=== PATIENT | female | born 1995 | race Caucasian/White ===

== ENCOUNTER → 2016-06-19 | Outpatient (CLI) | payer BC, OTHER ==
[2016-06-19 16:08] LABS: CH 30.1; CHCM 34.4; HCT 39.3 % (34.0-46.0); HGB 13.1 gm/dL (11.4-16.0); MCH 29.4 pg (25.0-35.0); MCHC 33.4 g/dL (31.0-37.0); MCV 88.1 fL (80.0-100.0); Mean Platelet Volume 8.1; RBC 4.46 m/uL (3.80-5.40)
[2016-06-19 16:15] LABS: Glucose 77 mg/dL (74-99); Non-African American GFR(MDRD) >60 (>60 ml/min/1.73 sqM)
[2016-06-19 16:47] LABS: Hepatitis B Surface Ag Index 0.06
== END | disposition home or self-care (01) ==
LOC: LABWHC1 15:43
PROVIDERS: ATTEND Obstetrics & Gynecology
DX: Z34.80 Encounter for supervision of other normal pregnancy, unspecified trimester (principal); Z3A.00 Weeks of gestation of pregnancy not specified
CPT/HCPCS: 36415; 82565; 82947; 85027; 86762; 86780; 86850; 86900; 86901; 87340

== ENCOUNTER → 2016-07-02 | Outpatient (CLI) | payer BC, OTHER ==
--- NOTE | 2016-07-02 17:06 | US ---
EXAMINATION TYPE: US OB <= 14 wk fetus DATE OF EXAM: 07/02/2016 4:45 PM COMPARISON: NONE CLINICAL HISTORY: Z36 Confirm dates. EXAM PERFORMED: Transabdominal (TA) EXAM MEASUREMENTS: GESTATIONAL AGE / DATING Physician Established: not established Dates by LMP: unknown Dates by First Scan: no prior Dates by Current Scan for: (9 weeks/5 days) EDC: 01/30/17 MATERNAL ANATOMY Uterus: 13.4 x 5.5 x 9.4cm Right Ovary: unable to visualize Left Ovary: 3.0 x 1.8 x 2.8cm Post CDS / Adnexa: appears wnl Presence of free fluid: no Presence of subchorionic bleed: no GESTATION / SURVEY CRL: 2.9cm (9 weeks/5 days) Yolk Sac (normal less than 6mm): 0.5cm Heart Rate: 165 bpm Rhythm: Normal IUP: Viable IUP Date of LMP: 02/21 Beta HcG (if available): unavailable TECHNOLOGIST IMPRESSION: Single viable IUP 9wks/5days with JUANY of 01/30/17 IMPRESSION: Viable intrauterine gestation with a gestational age of 9 weeks 5 days +/- 5 days. Estimated date of confinement based on this examination is 01/30/2017.
== END | disposition home or self-care (01) ==
LOC: RADUSWWP 16:24
PROVIDERS: ATTEND Obstetrics & Gynecology
DX: Z36 Encounter for antenatal screening of mother (principal); Z3A.09 9 weeks gestation of pregnancy
CPT/HCPCS: 76801

== ENCOUNTER → 2016-09-04 | Outpatient (CLI) | payer BC, OTHER ==
--- NOTE | 2016-09-04 21:34 | US ---
EXAMINATION TYPE: US OB anatomy transabd DATE OF EXAM: 09/04/2016 5:01 PM COMPARISON: NONE HISTORY: 2nd Trimester 036.62XO Large for Dates TECHNIQUE: EXAM MEASUREMENTS: GESTATIONAL AGE / DATING Physician Established: (18 weeks/6 days) EDC: 01/30/17 Dates by LMP: unknown Dates by First Scan: (18 weeks/6 days) EDC: 01/30/17 Dates by Current Scan for: (19 weeks/0 days) EDC: 01/29/17 SURVEY IUP: Single PLACENTA: Posterior PREVIA: Low Lying VISHNU: 13.5 cm normal CERVICAL LENGTH (transabdominal: norm > 3.0cm): 3.5 cm BIOMETRY PRESENTATION: Variable LIE: Transverse lie with head maternal LT BPD: 4.3 cm 19 weeks / 1 days HC: 16.3 cm 19 weeks / 1 days AC: 13.9 cm 19 weeks / 2 days FL: 3.0 cm 19 weeks / 1 days ESTIMATED WEIGHT IN GRAMS: 278 grams ESTIMATED WEIGHT IN LBS/OZS: 0 lbs. 10 oz. WEIGHT PERCENTAGE BASED ON ESTABLISHED DATE: 66.1 % HC/AC: 1.17 normal FL/AC: 21.15 normal HEART RATE: 145 bpm RHYTHM: Normal ANATOMY SEEN (within normal limits): * Lateral Vent (< 1 cm) 0.6 cm * Cisterna Magna (< 1.1 cm) 0.5 cm * Nuchal Fold (< 0.6 cm) 0.4 cm * Cerebellum (varies with age) 1.7 cm Choroid Plexus (bilateral) Midline Falx Cavus Septi Pellucidi Four Chamber Heart Outflow tracts: LVOT/RVOT Stomach Situs Nose / Lips Diaphragm Kidneys (bilateral) Bladder Cord Insert Three Vessel Cord Longitudinal Spine Transverse Spine Arms (bilateral) Legs (bilateral) IMPRESSION: Single viable IUP 19wks/0days with JUANY of 01/29/17. Placenta appears low-lying. Follow-up as clinica lly warranted.
== END ==
LOC: RADUSWWP 16:21
PROVIDERS: ATTEND Obstetrics & Gynecology
DX: O36.62X0 Maternal care for excessive fetal growth, second trimester, not applicable or unspecified (principal); Z3A.19 19 weeks gestation of pregnancy
CPT/HCPCS: 76811

== ENCOUNTER → 2016-10-31 | Outpatient (CLI) | payer BC, OTHER ==
[2016-10-31 11:56] LABS: CH 29.9; CHCM 33.1; HCT 37.2 % (34.0-46.0); HDW 2.98; HGB 12.2 gm/dL (11.4-16.0); MCH 29.8 pg (25.0-35.0); MCHC 32.8 g/dL (31.0-37.0); MCV 90.8 fL (80.0-100.0); Mean Platelet Volume 8.1; RBC 4.09 m/uL (3.80-5.40); RDW 13.8 % (11.5-15.5); WBC 12.1 k/uL (4.0-11.0)
== END | disposition home or self-care (01) ==
LOC: LABWHC1 10:29
PROVIDERS: ATTEND Obstetrics & Gynecology
DX: Z34.82 Encounter for supervision of other normal pregnancy, second trimester (principal); Z3A.00 Weeks of gestation of pregnancy not specified
CPT/HCPCS: 36415; 82950; 85027

== ENCOUNTER → 2016-11-07 | Outpatient (CLI) | payer BC, OTHER ==
--- NOTE | 2016-11-08 08:17 | US ---
EXAMINATION TYPE: US OB anatomy transabd DATE OF EXAM: 11/07/2016 COMPARISON: US HISTORY: Large for dates O36.63X0 TECHNIQUE: Transabdominal (TA) EXAM MEASUREMENTS: GESTATIONAL AGE / DATING Physician Established: (28 weeks/0 days) EDC: 01/30/17 Dates by LMP: (28 weeks/0 days) EDC: 01/30/17 Dates by First Scan: (28 weeks/0 days) EDC: 01/30/17 Dates by Current Scan for: (28 weeks/4 days) EDC: 01/26/17 SURVEY IUP: Single PLACENTA: Posterior PREVIA: No previa VISHNU: 17.7 cm CERVICAL LENGTH (transabdominal: norm > 3.0cm): 3.9 cm BIOMETRY PRESENTATION: Vertex LIE: Longitudinal BPD: 7.2 cm 29 weeks / 0 days HC: 26.6 cm 29 weeks / 0 days AC: 23.8 cm 28 weeks / 1 days FL: 5.2 cm 27 weeks / 6 days ESTIMATED WEIGHT IN GRAMS: 1184 grams ESTIMATED WEIGHT IN LBS/OZS: 2 lbs. 10 oz. WEIGHT PERCENTAGE BASED ON ESTABLISHED DATE: 43 % HC/AC: 26.6 FL/AC: 5.2 HEART RATE: 143 bpm RHYTHM: Normal ANATOMY SEEN (within normal limits): Midline Falx Cavus Septi Pellucidi Stomach Situs Nose / Lips Diaphragm Kidneys (bilateral) Longitudinal Spine Transverse Spine Arms (bilateral) Legs (bilateral) ANATOMY NOT SEEN: due to shadowing/advanced age * Lateral Vent (< 1 cm) cm * Cisterna Magna (< 1.1 cm) cm * Nuchal Fold (< 0.6 cm) cm * Cerebellum (varies with age) cm Choroid Plexus (bilateral) Four Chamber Heart Outflow tracts: LVOT/RVOT Bladder Cord Insert Three Vessel Cord IMPRESSION: 1. Single viable intrauterine with an estimated gestational age of 28 weeks 4 days and rossi mated date of confinement of 01/26/2017. Estimated weight is a 43%. 2. Limited anatomy as noted above given the advanced age and shadowing.
== END | disposition home or self-care (01) ==
LOC: RADUSWWP 16:21
PROVIDERS: ATTEND Obstetrics & Gynecology
DX: O36.63X0 Maternal care for excessive fetal growth, third trimester, not applicable or unspecified (principal); Z3A.28 28 weeks gestation of pregnancy
CPT/HCPCS: 76811

== ENCOUNTER 2017-01-27 06:00 | Inpatient (IN) | payer BC, OTHER ==
--- NOTE | 2017-01-27 05:47 | P.HPOB ---
History of Present Illness H&P Date: 01/27/17 Chief Complaint: Patient is requesting elective induction of labor. This patient is a pleasant 22-year-old 2 para 1 female estimated date of confinement 01/30/2017 estimated gestational age 39-4/7 weeks who presents to labor and delivery requesting induction of labor. Patient's care has been uncomplicated with the exception of late to seek care. Review of Systems Constitutional: Denies chills, Denies fever Cardiovascular: Denies chest pain, Denies shortness of breath Respiratory: Denies cough Gastrointestinal: Reports heartburn Genitourinary: Reports Menstruation: Reports amenorrhea Musculoskeletal: Denies myalgias Integumentary: Denies pruritus, Denies rash Past Medical History Past Medical History: No Reported History Additional Past Medical History / Comment(s): appendex out year ago History of Any Multi-Drug Resistant Organisms: None Reported Past Surgical History: Appendectomy Past Anesthesia/Blood Transfusion Reactions: No Reported Reaction Past Psychological History: No Psychological Hx Reported Smoking Status: Never smoker Past Alcohol Use History: None Reported Past Drug Use History: None Reported - Past Family History Mother Family Medical History: No Reported History Medications and Allergies Home Medications Medication Instructions Recorded Confirmed Type Pnv,Calcium 72/Iron/Folic Acid 1 tab PO DAILY 05/22/15 05/24/15 History [Pnv Plus Multivit Tab] Pnv,Calcium 72/Iron/Folic Acid 1 cap PO DAILY 05/24/15 05/24/15 History [Pnv Plus Multivit Tab] Allergies Allergy/AdvReac Type Severity Reaction Status Date / Time No Known Allergies Allergy Verified 05/24/15 08:46 Exam - OBG Physical Exam Abdomen: bowel sounds normal, no diffuse tenderness, no bruit present, no guarding noted, no hepatomegaly, no splenomegaly, no mass Vulva: both: normal Vagina: normal moisture, no discharge Cervix: no lesion (Cervix in the office was 2 cm and thick.), no discharge Uterus: enlarged (Fundal height was 38 cm.) Results blood work shows she is O positive, rubella immune, RPR nonreactive, hepatitis B negative, Glucola was normal, group B strep was positive, ultrasounds have been normal. Assessment and Plan (1) Third trimester Narrative/Plan: This is a pleasant 22-year-old 2 para 1 female 39-4/7 weeks gestation who presents to labor and delivery for requested induction of labor. Patient has a positive group B strep culture. Plan is antibiotic prophylaxis , induction of labor, and anticipate vaginal delivery. Status: Acute (2) Elective induction of labor planned Status: Acute (3) Group B streptococcal carriage complicating Status: Acute
[2017-01-27] MEDS ORDERED: LIDOCAINE 1% (PF) 10 MG/ML (30 ML SDV) SQ PRN (06:33)
[2017-01-27] MEDS ORDERED: TERBUTALINE 1 MG/ML VIAL SQ PRN (06:33)
[2017-01-27] MEDS ORDERED: METHYLERGONOVINE 0.2 MG/ML 1 ML AMP IM PRN (06:33)
[2017-01-27] MEDS ORDERED: AMPICILLIN 2,000 MG in SODIUM CHLORIDE 0.9% 100 ML IVPB STA (06:33)
[2017-01-27] MEDS ORDERED: OXYTOCIN 10 UNIT/ML 1 ML VIAL IM PRN (06:33)
[2017-01-27] MEDS ORDERED: CARBOPROST TROMETHAMINE 250 MCG/ML 1 ML AMP IM PRN (06:33)
[2017-01-27] MEDS: AMPICILLIN 1,000 MG in SODIUM CHLORIDE 0.9% 50 ML IVPB SCH ×4 (06:55→19:00)
[2017-01-27] MEDS: LACTATED RINGERS 1,000 ML IV SCH ×3 (06:55→13:02)
[2017-01-27] MEDS: OXYTOCIN 20 UNITS/1000 ML NS 1,000 ML IV SCH ×2 (07:08→20:39)
[2017-01-27 07:18] LABS: Basophils # (A) 0.1 k/uL (0-0.2); Basophils % (A) 0 %; CH 31.4; CHCM 35.1; Eosinophils # (A) 0.1 k/uL (0-0.7); Eosinophils % (A) 0 %; HCT 37.6 % (34.0-46.0); HDW 2.96; HGB 12.8 gm/dL (11.4-16.0); Luc # (Auto) 0.24; Luc % (Auto) 2; Lymphocytes # (A) 2.4 k/uL (1.0-4.8); Lymphocytes % (A) 19 %; MCH 30.5 pg (25.0-35.0); MCV 89.9 fL (80.0-100.0); Mean Platelet Volume 10.7; Monocytes # (A) 0.5 k/uL (0-1.0); Monocytes % (A) 4 %; Neutrophils # (A) 9.2 k/uL (1.3-7.7); Neutrophils % (A) 74 %; RBC 4.18 m/uL (3.80-5.40); RDW 15.8 % (11.5-15.5); WBC 12.4 k/uL (3.8-10.6); WBC (Perox) 12.58
[2017-01-27 07:21] VITALS: BMI 32.3
[2017-01-27] MEDS ORDERED: SODIUM CHLORIDE 0.9% 100 ML BAG ONE (11:11)
[2017-01-27] MEDS ORDERED: BUPIVACAINE (PF) 0.25% 30 ML VIAL ONE (11:11)
[2017-01-27] MEDS ORDERED: fentaNYL (PF) 50 MCG/ML 5 ML AMP ONE (11:11)
[2017-01-27] MEDS ORDERED: HYDROCORTISONE 2.5% RECTAL CREAM 30 GM TUBE RECTAL PRN (19:26)
[2017-01-27] MEDS ORDERED: SIMETHICONE 80 MG CHEWABLE PO PRN (19:26)
[2017-01-27] MEDS ORDERED: ZOLPIDEM 5 MG TAB PO PRN (19:26)
[2017-01-27] MEDS ORDERED: WITCH HAZEL 1 EACH MED..PAD TOPICAL PRN (19:26)
[2017-01-27] MEDS ORDERED: ACETAMINOPHEN TAB 325 MG TAB PO PRN (19:26)
[2017-01-27] MEDS ORDERED: diphenhydrAMINE 50 MG/ML 1 ML VIAL IVP PRN (19:26)
[2017-01-27] MEDS ORDERED: BISACODYL 10 MG SUPP RECTAL PRN (19:26)
[2017-01-27] MEDS ORDERED: Acetaminophen-Codeine 300-30mg TAB PO PRN (19:26)
[2017-01-27] MEDS ORDERED: LANOLIN CREAM 5 GM TUBE TOPICAL PRN (19:26)
[2017-01-27] MEDS ORDERED: diphenhydrAMINE 25 MG CAP PO PRN (19:26)
[2017-01-27] MEDS ORDERED: BENZOCAINE/MENTHOL SPRAY 1 GM/SPRAY AEROSOL TOPICAL PRN (19:26)
[2017-01-27] MEDS: IBUPROFEN 600 MG TAB PO PRN (19:48)
--- NOTE | 2017-01-27 19:49 | P.PROBDLV ---
Vaginal Delivery Note - . Vaginal Delivery Note: Normal vaginal delivery viable female Apgars 9 and 9 delivery time is 1905 hrs. Please see dictated H&P for intimate details of this patient's admission. Brief summary this is a 22-year-old 2 para 1 female 39-4/7 weeks gestation admitted to labor and delivery for requested induction of labor. On admission patient is 2 cm dilated has artificial rupture membranes for clear fluid. Labor is induced with Pitocin per protocol. Labor progresses and she does get an epidural for pain control. She does stay at 5 cm for bit of time but then progresses quickly to complete. Patient's pushes in the posterior perineum is supported. We have controlled delivery of 's head over the intact perineum. Mouth and nares are bulb suctioned. There is no evidence of a nuchal cord. With gentle downward traction we then have delivery the anterior and posterior shoulder and rest this infant's body. This is a vigorous viable female infant Apgars 9 and 9 delivery time is 1905 hrs. After delivery of the the umbilical cord is doubly clamped and cut appears to be trivascular. Placenta spontaneously delivered intact. Estimated blood loss is 150 mL. Inspection of perineum shows a right labial laceration extends somewhat into the vagina which is easily repaired with 3-0 Vicryl. Excellent reapproximation is noted.'s also left labial laceration that does not require repair. and mother are stable delivery room. All counts are correct 3. There are no complications.
[2017-01-27] MEDS: SENNOSIDES-DOCUSATE SODIUM 1 EACH TAB PO SCH ×2 (20:52→22:33)
[2017-01-27] MEDS: Acetaminophen-Codeine 300-30mg TAB PO PRN (20:52)
[2017-01-27] MEDS ORDERED: BUTORPHANOL 1 MG/ML 1 ML VIAL IV PRN (22:30)
[2017-01-27] MEDS ORDERED: LIDOCAINE 1% INJ 10MG/ML (20 ML MDV) SQ ONE (22:30)
--- NOTE | 2017-01-27 22:37 | P.PN ---
Progress Note - Text I Was called to see the patient regarding some increase in vaginal bleeding and hematoma of the right labia. Upon examination her uterus was firm. Her right labia is swollen and there is a hematoma beneath the suture line extending into the vagina. When hematoma as pushed some blood spurts up through a hole at the introitus. The patient was counseled that she probably needs a few more stitches and further examination. She has been eating side will not be taking her to the operating room. She is given some IV pain medication and the area is infiltrated with 1% lidocaine. I used a 3-0 Vicryl in [id number] stitches to approximate the suture line at the introitus and further into the vagina. Hemostasis was assured. Patient tolerated this well.
[2017-01-28] MEDS: IBUPROFEN 600 MG TAB PO PRN ×2 (02:46→10:35)
--- NOTE | 2017-01-28 06:30 | P.PNOBGVD ---
Subjective - Subjective Patient reports: Reports appetite normal, Reports voiding normally, Reports pain well controlled, Reports ambulating normally : doing well Objective - Latest Vital Signs Latest vital signs: Vital Signs Temp Pulse Resp BP Pulse Ox 01/28/17 04:00 98.3 F 85 16 93/49 01/28/17 00:00 98.4 F 91 16 102/58 01/27/17 22:24 96.6 F L 116 H 16 117/57 01/27/17 21:18 93 16 131/87 01/27/17 20:48 95 16 132/83 01/27/17 20:18 93 16 131/87 01/27/17 20:03 87 16 131/87 01/27/17 19:48 93 16 127/87 01/27/17 19:33 107 H 16 125/85 01/27/17 19:18 120 H 18 137/91 01/27/17 06:32 97.3 F L 103 H 16 150/93 97 Intake and Output 01/27/17 01/27/17 01/28/17 14:59 22:59 06:59 Intake Total 1999 1664.617 300 Output Total 450 Balance 1999 1214.617 300 Intake: Intake, IV Titration 1999 1664.617 Amount Lactated Ringers 1,000 ml 2000 1000 @ 125 mls/hr IV .Q8H DOREEN Rx#:[id number] Oxytocin 20 Units/1000 ml 664.617 Ns 1,000 ml @ 1 MILLIUNIT/MIN 3 mls/hr IV .Q24H DOREEN Rx#:[id number] Oral 300 Output: Urine 300 Estimated Blood Loss 150 Other: # Voids 1 1 - Exam Lungs: bilateral: normal Chest: Normal S1, Normal S2 Extremities: Present: normal Abdomen: Present: normal appearance, soft Uterus: Present: normal, firm - Labs Labs: Abnormal Lab Results - Last 24 Hours (Table) 01/27/17 Range/Units 06:44 WBC 12.4 H (3.8-10.6) k/uL RDW 15.8 H (11.5-15.5) % Neutrophils # 9.2 H (1.3-7.7) k/uL Assessment and Plan (1) Third trimester Narrative/Plan: Patient is resting without new complaints. Patient had an episode of increased pain and was found to have a hematoma had her suture site. Dr. Fajardo express this and placed additional sutures and the hematoma did not reform. CBC is pending at this time. Patient appears to be comfortable. Vital signs are stable and she is afebrile. Uterus is firm nontender. Inspection of her vulva does not show any expanding hematoma. Plan today is to continue routine care, allow the patient to shower, check a CBC. Current Visit: Yes Status: Acute Code(s): Z34.93 - ENCNTR FOR SUPRVSN OF NORMAL PREG, UNSP, THIRD TRIMESTER SNOMED Code(s): 40073436 (2) Elective induction of labor planned Current Visit: Yes Status: Acute Code(s): AUR9908 - SNOMED Code(s): 498502020 (3) Group B streptococcal carriage complicating Current Visit: Yes Status: Acute Code(s): O99.820 - STREPTOCOCCUS B CARRIER STATE COMPLICATING SNOMED Code(s): 346914722254976
[2017-01-28] MEDS: Acetaminophen-Codeine 300-30mg TAB PO PRN ×3 (07:52→21:21)
[2017-01-28] MEDS: SENNOSIDES-DOCUSATE SODIUM 1 EACH TAB PO SCH ×2 (07:52→22:15)
[2017-01-28 08:55] LABS: Basophils # (A) 0.1 k/uL (0-0.2); Basophils % (A) 0 %; CH 30.1; CHCM 33.7; Eosinophils # (A) 0.1 k/uL (0-0.7); Eosinophils % (A) 0 %; HCT 27.9 % (34.0-46.0); HDW 3.01; Luc # (Auto) 0.24; Luc % (Auto) 2; Lymphocytes % (A) 12 %; MCH 30.4 pg (25.0-35.0); MCHC 33.8 g/dL (31.0-37.0); MCV 89.9 fL (80.0-100.0); Mean Platelet Volume 10.2; Monocytes # (A) 0.8 k/uL (0-1.0); Monocytes % (A) 5 %; Neutrophils # (A) 13.4 k/uL (1.3-7.7); Neutrophils % (A) 81 %; RDW 15.2 % (11.5-15.5); WBC 16.5 k/uL (3.8-10.6); WBC (Perox) 17.93
[2017-01-28 09:03] LABS: HGB 9.4 gm/dL (11.4-16.0)
[2017-01-29] MEDS: Acetaminophen-Codeine 300-30mg TAB PO PRN (03:22)
--- NOTE | 2017-01-29 06:12 | P.PNOBGVD ---
Subjective - Subjective Patient reports: Reports appetite normal, Reports voiding normally, Reports pain well controlled, Reports ambulating normally : doing well Objective - Latest Vital Signs Latest vital signs: Vital Signs Temp Pulse Resp BP Pulse Ox 01/29/17 00:00 98.2 F 105 H 16 96/52 01/28/17 15:46 98.6 F 90 16 120/75 99 01/28/17 07:59 98.2 F 91 14 120/72 98 Intake and Output 01/28/17 01/28/17 01/29/17 14:59 22:59 06:59 Other: # Voids 1 2 1 - Exam Lungs: bilateral: normal Chest: Normal S1, Normal S2 Extremities: Present: normal Abdomen: Present: normal appearance, soft Uterus: Present: normal, firm - Labs Labs: Abnormal Lab Results - Last 24 Hours (Table) 01/28/17 Range/Units 07:36 WBC 16.5 H (3.8-10.6) k/uL RBC 3.10 L (3.80-5.40) m/uL Hgb 9.4 L D (11.4-16.0) gm/dL Hct 27.9 L (34.0-46.0) % Neutrophils # 13.4 H (1.3-7.7) k/uL Assessment and Plan (1) Third trimester Narrative/Plan: day #2. Patient is resting without complaints and wishes to go home. Vital signs are stable and she is afebrile. Uterus is firm nontender and her vulva appears the same. CBC yesterday showed her hemoglobin to be 9.4 which was expected. Patient's had normal bleeding. My impression is a normal course. She did have a vaginal hematoma which remains the same and is resolving. Plan is to continue routine care and discharge home later today. Current Visit: Yes Status: Acute Code(s): Z34.93 - ENCNTR FOR SUPRVSN OF NORMAL PREG, UNSP, THIRD TRIMESTER SNOMED Code(s): 20964141 (2) Elective induction of labor planned Current Visit: Yes Status: Acute Code(s): FIB1918 - SNOMED Code(s): 460829443 (3) Group B streptococcal carriage complicating Current Visit: Yes Status: Acute Code(s): O99.820 - STREPTOCOCCUS B CARRIER STATE COMPLICATING SNOMED Code(s): 781846129317326
--- NOTE | 2017-01-29 06:15 | P.DS ---
Providers Date of admission: 01/27/17 06:16 Expected date of discharge: 01/29/17 Attending physician: Davonte Fletcher Primary care physician: Stated None - Discharge Diagnosis(es) (1) Third trimester Please see dictated H&P for intimate details of this patient's admission. Brief summary this is a pleasant 22-year-old 2 para 1 female 39-4/7 weeks gestation admitted to labor and delivery for elective induction of labor. Patient was on have a vaginal delivery viable female . Please see dictated delivery note. Patient did develop a vaginal hematoma which required additional sutures and has some blood loss from this. This however did stop and continue to resolve throughout her admission. day #2 she is felt be stable for discharge home follow up with me in 6 weeks. Current Visit: Yes Status: Acute (2) Elective induction of labor planned Current Visit: Yes Status: Acute (3) Group B streptococcal carriage complicating Current Visit: Yes Status: Acute Plan - Discharge Summary New Discharge Prescriptions: New Acetaminophen-Codeine 300-30mg [Tylenol w/codeine #3] 1 - 2 each PO Q4HR PRN #30 tab PRN Reason: Mild Pain exceeding Tylenol Ibuprofen [Motrin] 600 mg PO Q6HR PRN #40 tab PRN Reason: Mild Pain Or Fever >= 100.5 Discharge Medication List Acetaminophen-Codeine 300-30mg [Tylenol w/codeine #3] 1 - 2 each PO Q4HR PRN # 30 tab 01/29/17 [Rx] Ibuprofen [Motrin] 600 mg PO Q6HR PRN #40 tab 01/29/17 [Rx] Follow up Appointment(s)/Referral(s): Davonte Fletcher MD [STAFF PHYSICIAN] - 03/09/17 8:45 am Patient Instructions/Handouts: Vaginal Delivery (DC) Activity/Diet/Wound Care/Special Instructions: No intercourse or anything per vagina for 6 weeks. Please call if any fever, chills, excessive vaginal bleeding, and/or abdominal pain. Discharge Disposition: HOME SELF-CARE
[2017-01-29 08:22] VITALS: BP 122/79; PULSE 101; RESP 14; TEMP 98.4
[2017-01-29] MEDS: SENNOSIDES-DOCUSATE SODIUM 1 EACH TAB PO SCH (11:13)
== END 2017-01-29 11:14 | disposition home or self-care (01) | DRG 775 ==
LOC: 4FBP 06:16
PROVIDERS: ADMIT Obstetrics & Gynecology; ATTEND Obstetrics & Gynecology
PROC: 10E0XZZ Delivery of Products of Conception, External Approach (ICD-10-PCS; principal; 2017-01-27)
PROC: 0UQGXZZ Repair Vagina, External Approach (ICD-10-PCS; 2017-01-27)
PROC: 10907ZC Drainage of Amniotic Fluid, Therapeutic from Products of Conception, Via Natural or Artificial Opening (ICD-10-PCS; 2017-01-27)
PROC: 3E033VJ Introduction of Other Hormone into Peripheral Vein, Percutaneous Approach (ICD-10-PCS; 2017-01-27)
PROC: 0HQ9XZZ Repair Perineum Skin, External Approach (ICD-10-PCS; 2017-01-27)
PROC: 3E0S3NZ Introduction of Analgesics, Hypnotics, Sedatives into Epidural Space, Percutaneous Approach (ICD-10-PCS; 2017-01-27)
DX: O70.0 First degree perineal laceration during delivery (principal); O71.7 Obstetric hematoma of pelvis; O99.824 Streptococcus B carrier state complicating childbirth; Z3A.39 39 weeks gestation of pregnancy; Z37.0 Single live birth; Z90.49 Acquired absence of other specified parts of digestive tract
CPT/HCPCS: 85025; 88307

== ENCOUNTER 2017-02-01 15:31 | Observation (INO) | payer BC, OTHER ==
[2017-02-01] MEDS ORDERED: SODIUM CHLORIDE 0.9% 1,000 ML IV STA (16:25)
[2017-02-01 16:48] LABS: Basophils % (A) 0 %; CH 29.9; CHCM 34.5; Eosinophils # (A) 0.1 k/uL (0-0.7); Eosinophils % (A) 1 %; HCT 28.2 % (34.0-46.0); HDW 3.36; HGB 9.6 gm/dL (11.4-16.0); Luc # (Auto) 0.17; Luc % (Auto) 1; Lymphocytes # (A) 1.5 k/uL (1.0-4.8); Lymphocytes % (A) 12 %; MCH 29.8 pg (25.0-35.0); MCHC 34.2 g/dL (31.0-37.0); MCV 87.3 fL (80.0-100.0); Mean Platelet Volume 8.7; Monocytes # (A) 0.5 k/uL (0-1.0); Monocytes % (A) 4 %; Neutrophils # (A) 10.4 k/uL (1.3-7.7); Neutrophils % (A) 81 %; RBC 3.23 m/uL (3.80-5.40); RDW 14.2 % (11.5-15.5); WBC 12.8 k/uL (3.8-10.6); WBC (Perox) 13.32
[2017-02-01 16:52] LABS: Appearance,Urine Cloudy (Clear); Bacteria,Urine Rare /hpf; Bilirubin,Urine Negative (Negative); Glucose,Urine (UA) Negative (Negative); Ketones,Urine 3+ (Negative); Leukocyte Esterase,Urine Large (Negative); Mucus,Urine Occasional /hpf; Nitrite,Urine Negative (Negative); PH, Urine 5.5 (5.0-8.0); Particle Count 12952; Protein,Urine 1+ (Negative); RBC,Urine >182 /hpf (0-5); Specific Gravity,Urine 1.015 (1.001-1.035); Squamous Epithelial Cell,Urine 2 /hpf (0-4); UA Billing (MACRO vs. MICRO) MICRO; Urobilinogen,Urine <2.0 mg/dL (<2.0); WBC,Urine >182 /hpf (0-5)
--- NOTE | 2017-02-01 16:54 | ED ---
General Adult HPI - General Chief complaint: Vaginal Bleeding Stated complaint: Female Time Seen by Provider: 02/01/17 15:46 Source: patient, RN notes reviewed, old records reviewed Mode of arrival: ambulatory Limitations: no limitations - History of Present Illness Initial comments: This is a 22-year-old female to the ER for evaluation. Postop issues. Patient recently had a vaginal delivery, she did have natural episiotomy which was repaired after . Patient has a continued breathing, and has noticed that her stitches have not held. Worse and when she tries to urinate. Denies complaints of any other symptoms, no abdominal pain. - Related Data Home Medications Medication Instructions Recorded Confirmed Acetaminophen-Codeine 300-30mg 1 tab PO Q8H PRN 02/01/17 02/01/17 [Tylenol #3] Ibuprofen [Motrin] 600 mg PO Q8HR PRN 02/01/17 02/01/17 Previous Rx's Medication Instructions Recorded Sulfamethox-Tmp 800-160Mg [Bactrim 1 tab PO Q12HR #10 tab 02/01/17 DS 800-160 mg] Allergies Allergy/AdvReac Type Severity Reaction Status Date / Time No Known Allergies Allergy Verified 02/01/17 15:59 Review of Systems ROS Statement: Those systems with pertinent positive or pertinent negative responses have been documented in the HPI. ROS Other: All systems not noted in ROS Statement are negative. Past Medical History Past Medical History: No Reported History Additional Past Medical History / Comment(s): appendex out year ago History of Any Multi-Drug Resistant Organisms: None Reported Past Surgical History: Appendectomy Past Anesthesia/Blood Transfusion Reactions: No Reported Reaction Past Psychological History: No Psychological Hx Reported Smoking Status: Never smoker Past Alcohol Use History: None Reported Past Drug Use History: None Reported - Past Family History Mother Family Medical History: No Reported History General Exam Limitations: no limitations General appearance: alert, in no apparent distress Head exam: Present: atraumatic, normocephalic, normal inspection Eye exam: Present: normal appearance, PERRL, EOMI. Absent: scleral icterus, conjunctival injection, periorbital swelling ENT exam: Present: normal exam, mucous membranes moist Neck exam: Present: normal inspection. Absent: tenderness, meningismus, lymphadenopathy Respiratory exam: Present: normal lung sounds bilaterally. Absent: respiratory distress, wheezes, rales, rhonchi, stridor Cardiovascular Exam: Present: regular rate, normal rhythm, normal heart sounds. Absent: systolic murmur, diastolic murmur, rubs, gallop, clicks GI/Abdominal exam: Present: soft, normal bowel sounds. Absent: distended, tenderness, guarding, rebound, rigid Extremities exam: Present: normal inspection, full ROM, normal capillary refill. Absent: tenderness, pedal edema, joint swelling, calf tenderness Back exam: Present: normal inspection Neurological exam: Present: alert, oriented X3, CN II-XII intact Psychiatric exam: Present: normal affect, normal mood Skin exam: Present: warm, dry, intact, normal color. Absent: rash Course Vital Signs 02/01/17 02/01/17 15:42 17:29 Temperature 99.4 F Pulse Rate 120 H 117 H Respiratory 20 18 Rate Blood Pressure 177/111 132/94 O2 Sat by Pulse 96 100 Oximetry - Reevaluation(s) Reevaluation #1: 02/01/17 16:[address] Fajardo regarding Medical Decision Making - Medical Decision Making 22 female known patient of gynecology, will be admitted to the hospital for repair of the episiotomy - Lab Data Result diagrams: 02/01/17 16:35 02/01/17 16:35 Lab Results 02/01/17 02/01/17 02/01/17 Range/Units 16:35 16:35 16:35 WBC 12.8 H (3.8-10.6) k/uL RBC 3.23 L (3.80-5.40) m/uL Hgb 9.6 L (11.4-16.0) gm/dL Hct 28.2 L (34.0-46.0) % MCV 87.3 (80.0-100.0) fL MCH 29.8 (25.0-35.0) pg MCHC 34.2 (31.0-37.0) g/dL RDW 14.2 (11.5-15.5) % Plt Count 279 (150-450) k/uL Neutrophils % 81 % Lymphocytes % 12 % Monocytes % 4 % Eosinophils % 1 % Basophils % 0 % Neutrophils # 10.4 H (1.3-7.7) k/uL Lymphocytes # 1.5 (1.0-4.8) k/uL Monocytes # 0.5 (0-1.0) k/uL Eosinophils # 0.1 (0-0.7) k/uL Basophils # 0.0 (0-0.2) k/uL PT 9.5 (9.0-12.0) sec INR 0.9 (<1.2) APTT 23.6 (22.0-30.0) sec Sodium 138 (137-145) mmol/L Potassium 3.8 (3.5-5.1) mmol/L Chloride 104 (98-107) mmol/L Carbon Dioxide 23 (22-30) mmol/L Anion Gap 11 mmol/L BUN 9 (7-17) mg/dL Creatinine 0.50 L (0.52-1.04) mg/dL Est GFR (MDRD) Af Amer >60 (>60 ml/min/1.73 sqM) Est GFR (MDRD) Non-Af >60 (>60 ml/min/1.73 sqM) Glucose 76 (74-99) mg/dL Calcium 9.1 (8.4-10.2) mg/dL Magnesium 1.7 (1.6-2.3) mg/dL Total Bilirubin 0.6 (0.2-1.3) mg/dL AST 28 (14-36) U/L ALT 43 (9-52) U/L Alkaline Phosphatase 185 H (38-126) U/L Total Protein 6.1 L (6.3-8.2) g/dL Albumin 3.4 L (3.5-5.0) g/dL Urine Color Urine Appearance (Clear) Urine pH (5.0-8.0) Ur Specific [place] (1.001-1.035) Urine Protein (Negative) Urine Glucose (UA) (Negative) Urine Ketones (Negative) Urine Blood (Negative) Urine Nitrite (Negative) Urine Bilirubin (Negative) Urine Urobilinogen (<2.0) mg/dL Ur Leukocyte Esterase (Negative) Urine RBC (0-5) /hpf Urine WBC (0-5) /hpf Ur Squamous Epith Cells (0-4) /hpf Urine Bacteria (None) /hpf Urine Mucus (None) /hpf Blood Type Blood Type Recheck Antibody Screen Spec Expiration Date 02/01/17 02/01/17 Range/Units 16:35 16:35 WBC (3.8-10.6) k/uL RBC (3.80-5.40) m/uL Hgb (11.4-16.0) gm/dL Hct (34.0-46.0) % MCV (80.0-100.0) fL MCH (25.0-35.0) pg MCHC (31.0-37.0) g/dL RDW (11.5-15.5) % Plt Count (150-450) k/uL Neutrophils % % Lymphocytes % % Monocytes % % Eosinophils % % Basophils % % Neutrophils # (1.3-7.7) k/uL Lymphocytes # (1.0-4.8) k/uL Monocytes # (0-1.0) k/uL Eosinophils # (0-0.7) k/uL Basophils # (0-0.2) k/uL PT (9.0-12.0) sec INR (<1.2) APTT (22.0-30.0) sec Sodium (137-145) mmol/L Potassium (3.5-5.1) mmol/L Chloride (98-107) mmol/L Carbon Dioxide (22-30) mmol/L Anion Gap mmol/L BUN (7-17) mg/dL Creatinine (0.52-1.04) mg/dL Est GFR (MDRD) Af Amer (>60 ml/min/1.73 sqM) Est GFR (MDRD) Non-Af (>60 ml/min/1.73 sqM) Glucose (74-99) mg/dL Calcium (8.4-10.2) mg/dL Magnesium (1.6-2.3) mg/dL Total Bilirubin (0.2-1.3) mg/dL AST (14-36) U/L ALT (9-52) U/L Alkaline Phosphatase (38-126) U/L Total Protein (6.3-8.2) g/dL Albumin (3.5-5.0) g/dL Urine Color Light Red Urine Appearance Cloudy H (Clear) Urine pH 5.5 (5.0-8.0) Ur Specific [place] 1.015 (1.001-1.035) Urine Protein 1+ H (Negative) Urine Glucose (UA) Negative (Negative) Urine Ketones 3+ H (Negative) Urine Blood Large H (Negative) Urine Nitrite Negative (Negative) Urine Bilirubin Negative (Negative) Urine Urobilinogen <2.0 (<2.0) mg/dL Ur Leukocyte Esterase Large H (Negative) Urine RBC >182 H (0-5) /hpf Urine WBC >182 H (0-5) /hpf Ur Squamous Epith Cells 2 (0-4) /hpf Urine Bacteria Rare H (None) /hpf Urine Mucus Occasional H (None) /hpf Blood Type O Positive Blood Type Recheck No Antibody Screen NEGATIVE Spec Expiration Date 02/04/20176 Disposition Clinical Impression: Obstetric vaginal laceration Disposition: ADMITTED IP TO THIS HOSP Condition: Stable
[2017-02-01 16:59] LABS: INR 0.9 (<1.2); Partial Thromboplastin Time 23.6 sec (22.0-30.0); Prothrombin Time 9.5 sec (9.0-12.0)
[2017-02-01 17:02] LABS: ALT 43 U/L (9-52); AST 28 U/L (14-36); Alkaline Phosphatase 185 U/L (38-126); Anion Gap 11 mmol/L; Blood Urea Nitrogen 9 mg/dL (7-17); Calcium 9.1 mg/dL (8.4-10.2); Carbon Dioxide 23 mmol/L (22-30); Chloride 104 mmol/L (98-107); Glucose 76 mg/dL (74-99); Magnesium 1.7 mg/dL (1.6-2.3); Non-African American GFR(MDRD) >60 (>60 ml/min/1.73 sqM); Potassium 3.8 mmol/L (3.5-5.1); Sodium 138 mmol/L (137-145); Total Bilirubin 0.6 mg/dL (0.2-1.3); Total Protein 6.1 g/dL (6.3-8.2)
--- NOTE | 2017-02-01 17:20 | P.HPOB ---
History of Present Illness H&P Date: 02/01/17 Chief Complaint: breakdown of vaginal laceration 22 year old presents S/P NVD PPD #5 with increased vaginal bleeding and perineal pain. She had a vaginal laceration with delivery that was repaired and needed additional stitches after that repair. She noticed yesterday that some stitches came loose and she had increased bleeding with clots. She now has more loose stitches and more pain with urination as well. Review of Systems All systems: negative Constitutional: Denies chills, Denies fever Eyes: denies blurred vision, denies pain Ears, nose, mouth and throat: Denies headache, Denies sore throat Cardiovascular: Denies chest pain, Denies shortness of breath Respiratory: Denies cough Gastrointestinal: Denies abdominal pain, Denies diarrhea, Denies nausea, Denies vomiting Genitourinary: Denies dysuria, Denies hematuria Musculoskeletal: Denies myalgias Integumentary: Denies pruritus, Denies rash Neurological: Denies numbness, Denies weakness Psychiatric: Denies anxiety, Denies depression Endocrine: Denies fatigue, Denies weight change Past Medical History Past Medical History: No Reported History Additional Past Medical History / Comment(s): appendex out year ago. OB history : NVD x2 History of Any Multi-Drug Resistant Organisms: None Reported Past Surgical History: Appendectomy Past Anesthesia/Blood Transfusion Reactions: No Reported Reaction Past Psychological History: No Psychological Hx Reported Smoking Status: Never smoker Past Alcohol Use History: None Reported Past Drug Use History: None Reported - Past Family History Mother Family Medical History: No Reported History Medications and Allergies Home Medications Medication Instructions Recorded Confirmed Type Acetaminophen-Codeine 300-30mg 1 tab PO Q8H PRN 02/01/17 02/01/17 History [Tylenol #3] Ibuprofen [Motrin] 600 mg PO Q8HR PRN 02/01/17 02/01/17 History Allergies Allergy/AdvReac Type Severity Reaction Status Date / Time No Known Allergies Allergy Verified 02/01/17 15:59 Exam Osteopathic Statement: *. No significant issues noted on an osteopathic structural exam other than those noted in the History and Physical/Consult. - Vital Signs Vital signs: Vital Signs Temp Pulse Resp BP Pulse Ox 02/01/17 15:42 99.4 F 120 H 20 177/111 96 Intake and Output 02/01/17 02/01/17 02/01/17 06:59 14:59 22:59 Other: Weight 68.492 kg Patient Weight 02/02/17 06:59 Weight 68.492 kg Heart: Regular rate and rhythm Lungs: Clear to auscultation bilaterally Abdomen: Soft, nontender Extremities: Negative Homans sign PErineum: on the right labia, the stitches are loose, there is a 1cm gap in the laceration and about 0.5cm deep. It extends into the vagina. Results Result Diagrams: 02/01/17 16:35 02/01/17 16:35 Abnormal Lab Results - Last 24 Hours (Table) 02/01/17 02/01/17 02/01/17 Range/Units 16:35 16:35 16:35 WBC 12.8 H (3.8-10.6) k/uL RBC 3.23 L (3.80-5.40) m/uL Hgb 9.6 L (11.4-16.0) gm/dL Hct 28.2 L (34.0-46.0) % Neutrophils # 10.4 H (1.3-7.7) k/uL Creatinine 0.50 L (0.52-1.04) mg/dL Alkaline Phosphatase 185 H (38-126) U/L Total Protein 6.1 L (6.3-8.2) g/dL Albumin 3.4 L (3.5-5.0) g/dL Urine Appearance Cloudy H (Clear) Urine Protein 1+ H (Negative) Urine Blood Large H (Negative) Ur Leukocyte Esterase Large H (Negative) Urine RBC >182 H (0-5) /hpf Urine WBC >182 H (0-5) /hpf Urine Bacteria Rare H (None) /hpf Urine Mucus Occasional H (None) /hpf Assessment and Plan (1) Obstetric vaginal laceration Status: Acute Plan: 1. We discussed putting the vaginal laceration healing well by secondary intention versus taking her to the operating room and clean the area profusely and then putting several stitches in it to repair it. I will taken to the operating room to clean the area and put stitches in it to bring the area together. We discussed all risks, benefits and alternatives. She expressed complete understanding.
[2017-02-01] MEDS ORDERED: PROPOFOL 10 MG/ML 20 ML VIAL IV ONE (18:08)
[2017-02-01] MEDS ORDERED: LIDOCAINE 1% INJ 10MG/ML (20 ML MDV) ONE (18:08)
[2017-02-01] MEDS ORDERED: SODIUM CHLORIDE 0.9% 1,000 ML IV ONE (18:08)
[2017-02-01] MEDS ORDERED: MIDAZOLAM 2 MG/2 ML VIAL ONE (18:08)
[2017-02-01] MEDS ORDERED: fentaNYL (PF) 50 MCG/ML 2 ML AMP ONE (18:08)
[2017-02-01] MEDS ORDERED: SODIUM CHLORIDE 0.9% 50 ML with ceFAZolin 2,000 MG IV ONE ×2 (18:17)
[2017-02-01] MEDS ORDERED: MEPERIDINE 50 MG/ML SYRINGE IVP ONE ×2 (19:07→19:19)
--- NOTE | 2017-02-01 19:07 | P.OP ---
Date of Procedure: 02/01/17 Preoperative Diagnosis: 1.obstetric vaginal laceration; reopened Postoperative Diagnosis: 1.obstetric vaginal laceration;reopened Procedure(s) Performed: 1. repair of vaginal laceration Implants: Anesthesia: SHELBI Surgeon: Radha Fajardo Estimated Blood Loss (ml): 25 IV fluids (ml): 200 Urine output (ml): 50 Pathology: none sent Condition: stable Disposition: PACU Indications for Procedure: Operative Findings: laceration of the right labia extending to the right sulcus about 5 cm in length and 3-4 cm deep. Description of Procedure: She was taken the operating room where general anesthesia was obtained without difficulty. She is prepped and draped in normal sterile fashion dorsal lithotomy position, legs placed in the Luis stirrups. Bladder was drained of all urine. The vaginal laceration was gaping open so the old stitches were removed. The laceration was copiously irrigated. Rectal exam was performed and normal. 2-0 Vicryl was used to close the space which was about 3-4 cm deep. The vaginal mucosa was then closed using 2-0 Vicryl in a running locked stitch. Starting at the apex of the sulcus and then working down towards the opening of the vagina and the right labia. Hemostasis was assured. Patient tolerated the procedure well. Sponge and instrument counts are correct 2. She was taken to recovery in stable condition.
[2017-02-01] MEDS ORDERED: KETOROLAC 30 MG/ML 1 ML VIAL IVP ONE (19:17)
[2017-02-01 20:25] VITALS: BMI 30.2
[2017-02-01 20:36] VITALS: RESP 18
[2017-02-01 21:19] VITALS: BP 130/79; PULSE 87; TEMP 98.4
--- NOTE | 2017-02-07 16:42 | P.DS ---
Providers Date of admission: 02/01/17 18:54 Expected date of discharge: 02/01/17 Attending physician: Radha Fajardo Primary care physician: Stated None - Discharge Diagnosis(es) (1) Obstetric vaginal laceration Status: Acute Hospital Course: Patient was seen and examined the emergency room on February 01, 2017. She was taken to the operating room the same day to repair obstetric vaginal laceration that had reopened. She was discharged home that evening in stable condition to follow-up with her primary electric tape slitter Dr. Fletcher in the next few weeks. Patient Condition at Discharge: Stable Plan - Discharge Summary New Discharge Prescriptions: New Sulfamethox-Tmp 800-160Mg [Bactrim DS 800-160 mg] 1 tab PO Q12HR #10 tab No Action Ibuprofen [Motrin] 600 mg PO Q8HR PRN PRN Reason: Pain Acetaminophen-Codeine 300-30mg [Tylenol #3] 1 tab PO Q8H PRN PRN Reason: Pain Discharge Medication List Acetaminophen-Codeine 300-30mg [Tylenol #3] 1 tab PO Q8H PRN 02/01/17 [History] Ibuprofen [Motrin] 600 mg PO Q8HR PRN 02/01/17 [History] Sulfamethox-Tmp 800-160Mg [Bactrim DS 800-160 mg] 1 tab PO Q12HR #10 tab [Rx] Follow up Appointment(s)/Referral(s): Davonte Fletcher MD [STAFF PHYSICIAN] - 1 Week None,Stated [Primary Care Provider] - 1-2 days Discharge Disposition: HOME SELF-CARE
== END 2017-02-01 21:15 | disposition home or self-care (01) ==
LOC: EC 15:31 → 4FBP 18:54
PROVIDERS: ADMIT Obstetrics & Gynecology; ATTEND Obstetrics & Gynecology
DX: O71.4 Obstetric high vaginal laceration alone (principal)
CPT/HCPCS: 59300; 99285; 36415; 86900; 86901; 80053; 83735; 85025; 85610; 85730; 86850; 81001; 87086; G0378; J2250; J2175; J2001; J3010; J1885; J0690; J2704

== ENCOUNTER 2020-10-19 09:50 | Inpatient (IN) | payer BC, OTHER ==
[2020-10-19 10:38] LABS: Creatinine,Urine Random 66.8 mg/dL; Protein/Creatinine Ratio,Urine 0.24
[2020-10-19 10:52] LABS: Basophils # (A) 0.1 k/uL (0-0.2); Basophils % (A) 1 %; Eosinophils # (A) 0.1 k/uL (0-0.7); Eosinophils % (A) 1 %; HCT 34.1 % (34.0-46.0); HGB 11.8 gm/dL (11.4-16.0); Lymphocytes % (A) 16 %; MCH 28.3 pg (25.0-35.0); MCHC 34.6 g/dL (31.0-37.0); MCV 81.8 fL (80.0-100.0); Mean Platelet Volume 8.8; Monocytes # (A) 0.6 k/uL (0-1.0); Monocytes % (A) 5 %; Neutrophils # (A) 9.5 k/uL (1.3-7.7); Neutrophils % (A) 76 %; Platelet Count 201 k/uL (150-450); Poikilocytosis Slight; RBC 4.16 m/uL (3.80-5.40); RDW 15.2 % (11.5-15.5); WBC 12.6 k/uL (3.8-10.6)
[2020-10-19 10:57] LABS: Amorphous Sediment,Urine Rare /hpf; Appearance,Urine Cloudy (Clear); Bacteria,Urine Few /hpf; Bilirubin,Urine Negative (Negative); Blood,Urine Negative (Negative); Color,Urine Yellow; Glucose,Urine (UA) Negative (Negative); Ketones,Urine Negative (Negative); Leukocyte Esterase,Urine Large (Negative); Mucus,Urine Occasional /hpf; Nitrite,Urine Negative (Negative); PH, Urine 7.5 (5.0-8.0); Protein,Urine Trace (Negative); RBC,Urine 3 /hpf (0-5); Specific Gravity,Urine 1.015 (1.001-1.035); Squamous Epithelial Cell,Urine 22 /hpf (0-4); Urobilinogen,Urine <2.0 mg/dL (<2.0); WBC,Urine 20 /hpf (0-5)
[2020-10-19 11:08] LABS: ALT 17 U/L (4-34); AST 22 U/L (14-36); African American GFR (CKD) >90 (>60 ml/min/1.73 sqM); Blood Urea Nitrogen 7 mg/dL (7-17); LDH 439 U/L (313-618); Non-African American GFR(CKD) >90 (>60 ml/min/1.73 sqM); Uric Acid 3.2 mg/dL (3.7-7.4)
[2020-10-19] MEDS ORDERED: TERBUTALINE 1 MG/ML VIAL SQ PRN (12:18)
[2020-10-19] MEDS ORDERED: METHYLERGONOVINE 0.2 MG/ML 1 ML AMP IM PRN (12:18)
[2020-10-19] MEDS ORDERED: LIDOCAINE 0.5% (PF) 5 MG/ML (50 ML SDV) SQ PRN (12:18)
[2020-10-19] MEDS ORDERED: AMPICILLIN 2,000 MG in SODIUM CHLORIDE 0.9% 100 ML IVPB STA (12:18)
[2020-10-19] MEDS ORDERED: OXYTOCIN 10 UNIT/ML 1 ML VIAL IM PRN (12:18)
[2020-10-19] MEDS ORDERED: CARBOPROST TROMETHAMINE 250 MCG/ML 1 ML AMP IM PRN (12:18)
[2020-10-19] MEDS ORDERED: BUTORPHANOL 1 MG/ML 1 ML VIAL IV PRN (12:21)
[2020-10-19] MEDS: LACTATED RINGERS 1,000 ML IV SCH ×4 (12:30→23:51)
[2020-10-19] MEDS ORDERED: OXYTOCIN 30 UNITS/500 ML NS 30 UNIT in SALINE 1 500ML.BAG IV SCH ×2 (12:30→21:15)
[2020-10-19] MEDS ORDERED: ePHEDrine SULFATE/0.9% NACL/PF 50 MG/5 ML SYRINGE IV ONE (14:40)
[2020-10-19] MEDS ORDERED: fentaNYL (PF) 50 MCG/ML 5 ML AMP ONE (14:40)
[2020-10-19] MEDS ORDERED: SODIUM CHLORIDE 0.9% 100 ML BAG ONE (14:40)
[2020-10-19] MEDS ORDERED: ROPIVACAINE 5MG/ML 20ML VIAL ONE (14:40)
[2020-10-19] MEDS: AMPICILLIN 1,000 MG in SODIUM CHLORIDE 0.9% 50 ML IVPB SCH (16:36)
--- NOTE | 2020-10-19 18:51 | P.HPOB ---
History of Present Illness H&P Date: 10/19/20 Chief Complaint: Gestational hypertension This patient is a 25-year-old 3 para 2 female estimated date of confinement 11/09/2020 and estimated gestational age 37-0/7 weeks who presented to the office this morning for routine obstetrical visit was found to have elevated diastolic blood pressure in the 90s. Patient's subsequent sent to labor and delivery where she continued to have elevated blood pressures high as 150 over 90s. Patient's preeclampsia laboratory was negative. Given the diagnosis of gestational hypertension, recommendations were to proceed with delivery at this time. Patient's care was complicated by a breech approximately a week and a half ago however ultrasound today confirms vertex. has no history of hypertension in the past or with previous . Review of Systems Genitourinary: Reports Menstruation: Reports amenorrhea Past Medical History Past Medical History: No Reported History Additional Past Medical History / Comment(s): Patient's had 2 previous vaginal deliveries. History of Any Multi-Drug Resistant Organisms: None Reported Past Surgical History: Appendectomy Past Anesthesia/Blood Transfusion Reactions: No Reported Reaction Past Psychological History: No Psychological Hx Reported Smoking Status: Never smoker Past Alcohol Use History: None Reported Past Drug Use History: None Reported - Past Family History Mother Family Medical History: Hypertension Medications and Allergies Home Medications Medication Instructions Recorded Confirmed Type Pnv No.95/Ferrous Fum/Folic AC 1 tab PO DAILY 10/19/20 10/19/20 History [ Multivitamin Tablet] Allergies Allergy/AdvReac Type Severity Reaction Status Date / Time No Known Allergies Allergy Verified 10/19/20 10:11 Exam Vital Signs Temp Pulse Resp BP Pulse Ox 10/19/20 11:53 98.4 F 112 H 16 150/96 98 10/19/20 10:13 97.1 F L 110 H 16 130/91 Intake and Output 10/19/20 10/19/20 10/19/20 06:59 14:59 22:59 Other: # Voids 3 Weight 82.1 kg - OBG Physical Exam Abdomen: bowel sounds normal, no diffuse tenderness, no bruit present, no guarding noted, no hepatomegaly, no splenomegaly, no mass Vulva: both: normal Vagina: normal moisture, no discharge Cervix: no lesion (Cervix is 1 cm dilated and thick.), no discharge Uterus: enlarged (Fundal height is 37 cm) Results blood work shows she is O positive, rubella immune, hepatitis B negative, HIV is nonreactive, RPR is nonreactive, group B strep was positive, Glucola was normal, ultrasounds approximately 2 weeks ago showed estimated weight of 6 lbs. 8 oz. Result Diagrams: 10/19/20 10:39 10/19/20 10:39 Abnormal Lab Results - Last 24 Hours (Table) 10/19/20 10/19/20 10/19/20 Range/Units 10:14 10:39 10:39 WBC 12.6 H (3.8-10.6) k/uL Neutrophils # 9.5 H (1.3-7.7) k/uL Creatinine 0.36 L (0.52-1.04) mg/dL Uric Acid 3.2 L (3.7-7.4) mg/dL Urine Appearance Cloudy H (Clear) Urine Protein Trace H (Negative) Ur Leukocyte Esterase Large H (Negative) Urine WBC 20 H (0-5) /hpf Ur Squamous Epith Cells 22 H (0-4) /hpf Amorphous Sediment Rare H (None) /hpf Urine Bacteria Few H (None) /hpf Urine Mucus Occasional H (None) /hpf Assessment and Plan Assessment: This is a 25-year-old 3 para 2 female 37-0/7 weeks gestation with gestational hypertension. Per current recommendations, plan is to proceed with induction of labor. I explained the diagnosis and process to the patient and she understands. Anticipate vaginal delivery. (1) Gestational hypertension Current Visit: Yes Status: Acute Code(s): O13.9 - GESTATIONAL HTN W/O SIGNIFICANT PROTEINURIA, UNSP TRIMESTER SNOMED Code(s): 109566416 (2) Group B streptococcal carriage complicating Current Visit: No Status: Acute Code(s): O99.820 - STREPTOCOCCUS B CARRIER STATE COMPLICATING SNOMED Code(s): 900911663261604 (3) Encounter for induction of labor Current Visit: Yes Status: Acute Code(s): Z34.90 - ENCNTR FOR SUPRVSN OF NOR MAL , UNSP, UNSP TRIMESTER SNOMED Code(s): 418493940
[2020-10-19] MEDS ORDERED: MORPHINE SULFATE (PF) 0.3 MG/0.3 ML SYR ONE (20:11)
[2020-10-19] MEDS ORDERED: fentaNYL (PF) 50 MCG/ML 2 ML AMP ONE (20:11)
[2020-10-19] MEDS ORDERED: diphenhydrAMINE 50 MG/ML 1 ML VIAL IVP PRN (21:12)
[2020-10-19] MEDS ORDERED: NALOXONE 0.4 MG/ML 1 ML VIAL IV PRN (21:12)
[2020-10-19] MEDS ORDERED: LANOLIN CREAM 5 GM TUBE TOPICAL PRN (21:12)
[2020-10-19] MEDS ORDERED: diphenhydrAMINE 25 MG CAP PO PRN (21:12)
[2020-10-19] MEDS ORDERED: ZOLPIDEM 5 MG TAB PO PRN (21:12)
[2020-10-19] MEDS ORDERED: METOCLOPRAMIDE 5 MG/ML 2 ML VIAL IVP PRN (21:12)
[2020-10-19] MEDS ORDERED: SIMETHICONE 80 MG CHEWABLE PO PRN (21:12)
[2020-10-19] MEDS ORDERED: ONDANSETRON 4 MG/2 ML VIAL IVP PRN (21:12)
--- NOTE | 2020-10-19 21:22 | XR ---
EXAMINATION TYPE: XR abdomen 1V DATE OF EXAM: 10/19/2020 COMPARISON: NONE HISTORY: Sponge count TECHNIQUE: Single view FINDINGS: There are skin silvestre over the lower abdomen. There is no sign of intestinal obstruction o r pneumoperitoneum. There is no evidence of retained sponge foreign body. There is surgical clip in t he right mid abdomen. This could be from cholecystectomy. IMPRESSION: No evidence of a foreign body.
--- NOTE | 2020-10-19 21:34 | P.OP ---
Date of Procedure: 10/19/20 Preoperative Diagnosis: #1: 37 0/7 week intrauterine . #2: Gestational hypertension. #3: bradycardia remote from delivery Postoperative Diagnosis: Same, nuchal cord Procedure(s) Performed: Emergent primary low transverse section Anesthesia: epidural Surgeon: Davonte Fletcher Adon #1: Monique Stokes Estimated Blood Loss (ml): 600 Pathology: other (Placenta) Condition: stable Disposition: floor Indications for Procedure: Please see dictated H&P for intimate details of this patient's admission. Brief summary this is a pleasant 25-year-old 3 para 2 female 37-0/7 weeks gestation who is admitted from my office with elevated diastolic blood pressures. Labor and delivery patient has persistent blood pressure elevations with negative preeclampsia labs. Recommendations at this time proceed with delivery. Patient was breech last week hours vertex today and is dilated to 2cm dilated. Patient is artificial rupture membranes for clear fluid at 2 cm. Patient does have some variable decelerations that resolved with position changes. Labor progresses she gets approximately 4 cm dilated and does get an epidural for pain control patient this time begins having repetitive variable decelerations and then bradycardia into the 70s and 80s. Despite multiple position changes these did not resolve and I recommend proceeding with emergent section for delivery. Patient does understand the surgery and risks. All the patient's questions are answered written consent is obtained. Operative Findings: This is a vigorous viable male Apgars 9 and 9 delivery time is 2016 hrs. Infant had a nuchal cord 1 Description of Procedure: This patient is taken to the operating room where she is laid in the supine position. At this time it is deemed the epidural sufficient level for surgery therefore Saunders catheter is placed to straight drain. Patient has abdominal prep and drape. Appropriate timeout was done. Scalpels taken Pfannenstiel skin incision is then made. A second scalpel is taken down the fascia and the fascia scored with a knife. Fascial incision extended bilaterally using the Castorena scissors. Fascia is then dissected off the rectus muscles sharply. Rectus muscles are the peritoneum identified and entered sharply. Bladder blade is placed scalpels taken low transverse uterine incision is then made. Using a hemostat I enter the uterine cavity bluntly. There is loss of clear fluid. Infant's head is then guided through the incision with fundal pressure delivered mouth and nares are bulb suctioned. There is a nuchal cord 1 which is reduced. With continued fundal pressure we deliver the rest this infant's body. Is a vigorous viable male Apgars are 9 and 9 delivery time is 2016 hrs. After delivery of the infant the umbilical cord is doubly clamped and cut infant is handed off to the nurses in attendance. Placenta is then manually extracted intact. Uterus is then externalized. Uterine incision is demarcated with Garcia clamps and then closed using 0 Vicryl running locked fashion 2 layers. Good hemostasis is noted. Uterus, tubes, ovaries appear normal for term gestation. This done and good hemostasis noted the uterus placed back into the abdomen. The parietal peritoneum was then closed using 0 Vicryl running fashion. Rectus muscles reapproximated using 0 Vicryl interrupted fashion. Fascia is then closed using 0 PDS. Fascial incision is intact and hemostatic. Subcutaneous tissue is then closed using a 3-0 Vicryl. Luis and sterile dressing is applied. At this time is made aware to me that there was not an initial sponge count done due to the emergent nature of the therefore a flatplate was ordered of the abdomen. This did not show any evidence of adrianna ined foreign body and all sponge counts were correct. At this point patient and baby are taken to the birthing suite in satisfactory condition. There are no complications.
--- NOTE | 2020-10-19 21:56 | P.MSEPDOC ---
Presenting Problems - Arrival Data Date of Arrival on Unit: 10/19/20 Time of Arrival on Unit: 09:50 Mode of Transport: Portable - Complaint OB-Reason for Admission/Chief Complaint: PIH Comment: sent from office with script Medical History - Information : 3 Para: 2 Term: 2 : 0 Abortions: Spontaneous or Elective: 0 Number of Living Children: 2 - Gestational Age Gestational Age by JUANY (wks/days): 37 Weeks and 0 Days - History Comment: No complications until higher pressures in office today Review of Systems - Review of Systems Constitutional: No problems Breast: No problems ENT: No problems Cardiovascular: No problems Respiratory: No problems Gastrointestinal: No problems Genitourinary: No problems Musculoskeletal: No problems Neurological: No problems Skin: No problems Vital Signs - Temperature Temperature: 96.1 F Temperature Source: Temporal Artery Scan - Pulse Right Brachial Pulse Rate: 100 Pulse Assessment Method: Automatic Cuff - Respirations Respiratory Rate: 16 Oxygen Delivery Method: Non-Rebreather O2 Sat by Pulse Oximetry: 100 - Blood Pressure Right Arm Sitting Blood Pressure: 95/53 Blood Pressure Mean: 67 Blood Pressure Source: Automatic Cuff Medical Screen Scoring (Pre) - Cervical Exam Dilation: Exam Deferred - Uterine Contractions Frequency: > or = 36 weeks =2 Duration: > 40 seconds = 2 Intensity: N/A - Maternal Vital Signs Maternal Temperature: N/A Maternal Blood Pressure: Diastolic > 89 = 1 Signs of Preeclampsia: N/A - Assessment - Baby A Baseline FHR: 115 Heart Rate - NICHD Category: Category I (Normal) = 0 NST: Reactive Position: N/A Station: N/A - Total Score - Baby A Total Score - Baby A: 5 - Total Score - Baby B Total Score - Baby B: 5 - Total Score - Baby C Total Score - Baby C: 5 - Level of Risk - Baby A Level of Risk - Baby A: Low (0-5) - Level of Risk - Baby B Level of Risk - Baby B: Low (0-5) - Level of Risk - Baby C Level of Risk - Baby C: Low (0-5) Physician Notification (Pre) - Physician Notified Physician Notified Date: 10/19/20 Physician Notified Time: 11:30 New Order Received: Yes - Notification Comment Comment: admit for Medical IOL for GHT Disposition - Disposition OB Disposition: Admit, LDRP Suite I agree with the RN Medical Screening Exam: Yes Case reviewed; plan agreed upon as documented in EMR&OBIX.: Yes Diagnosis: GESTATIONAL HTN W/O SIGNIFICANT PROTEINURIA, THIRD TRIMESTER
[2020-10-20] MEDS: KETOROLAC 15 MG/ML 1 ML VIAL IVP PRN ×2 (03:37→10:06)
[2020-10-20] MEDS: ACETAMINOPHEN TAB 500 MG TAB PO PRN ×3 (05:28→20:07)
[2020-10-20 06:33] LABS: Basophils % (A) 0 %; Eosinophils % (A) 0 %; HCT 27.2 % (34.0-46.0); Lymphocytes # (A) 1.5 k/uL (1.0-4.8); Lymphocytes % (A) 12 %; MCH 28.8 pg (25.0-35.0); MCHC 34.7 g/dL (31.0-37.0); MCV 83.2 fL (80.0-100.0); Mean Platelet Volume 10.1; Monocytes # (A) 0.6 k/uL (0-1.0); Monocytes % (A) 5 %; Neutrophils # (A) 10.7 k/uL (1.3-7.7); Neutrophils % (A) 83 %; Platelet Count 149 k/uL (150-450); Poikilocytosis Slight; RBC 3.27 m/uL (3.80-5.40); RDW 15.2 % (11.5-15.5); WBC 12.9 k/uL (3.8-10.6)
[2020-10-20 06:36] LABS: HGB 9.4 gm/dL (11.4-16.0)
--- NOTE | 2020-10-20 06:44 | P.PNOBGPC ---
Subjective - Subjective Patient reports: Reports appetite normal, Reports voiding normally, Reports pain well controlled, Reports ambulating normally Ernul: doing well Objective - Vital Signs Latest vital signs: Vital Signs Temp Pulse Resp BP Pulse Ox 10/20/20 03:36 97.9 F 64 16 103/52 10/20/20 00:00 97.0 F L 95 16 113/61 10/19/20 23:00 96.8 F L 70 16 102/70 97 10/19/20 22:30 88 16 125/76 98 10/19/20 22:00 90 16 122/58 100 10/19/20 21:55 96.1 F L 100 16 95/53 100 10/19/20 21:45 85 16 101/55 100 10/19/20 21:30 100 16 95/53 100 10/19/20 21:15 92 16 93/54 100 10/19/20 21:00 96.1 F L 83 16 95/50 100 10/19/20 11:53 98.4 F 112 H 16 150/96 98 10/19/20 10:13 97.1 F L 110 H 16 130/91 Intake and Output 10/19/20 10/19/20 10/20/20 14:59 22:59 06:59 Intake Total 50 Output Total 900 Balance 50 -900 Intake: Oral 50 Output: Urine 900 Uretheral (Saunders) 700 Other: Voiding Method Indwelling Catheter Indwelling Catheter # Voids 3 3 Weight 82.1 kg - Exam Lungs: bilateral: normal Chest: Normal S1, Normal S2 Extremities: Present: normal Abdomen: Present: normal appearance, soft. Absent: distention, tenderness Incision: Present: normal, dry, intact Uterus: Present: normal, firm - Labs Labs: Abnormal Lab Results - Last 24 Hours (Table) 10/19/20 10/19/20 10/19/20 Range/Units 10:14 10:39 10:39 WBC 12.6 H (3.8-10.6) k/uL RBC (3.80-5.40) m/uL Hgb (11.4-16.0) gm/dL Hct (34.0-46.0) % Plt Count (150-450) k/uL Neutrophils # 9.5 H (1.3-7.7) k/uL Creatinine 0.36 L (0.52-1.04) mg/dL Uric Acid 3.2 L (3.7-7.4) mg/dL Urine Appearance Cloudy H (Clear) Urine Protein Trace H (Negative) Ur Leukocyte Esterase Large H (Negative) Urine WBC 20 H (0-5) /hpf Ur Squamous Epith Cells 22 H (0-4) /hpf Amorphous Sediment Rare H (None) /hpf Urine Bacteria Few H (None) /hpf Urine Mucus Occasional H (None) /hpf // Range/Units 06:14 WBC 12.9 H (3.8-10.6) k/uL RBC 3.27 L (3.80-5.40) m/uL Hgb 9.4 L D (11.4-16.0) gm/dL Hct 27.2 L (34.0-46.0) % Plt Count 149 L (150-450) k/uL Neutrophils # 10.7 H (1.3-7.7) k/uL Creatinine (0.52-1.04) mg/dL Uric Acid (3.7-7.4) mg/dL Urine Appearance (Clear) Urine Protein (Negative) Ur Leukocyte Esterase (Negative) Urine WBC (0-5) /hpf Ur Squamous Epith Cells (0-4) /hpf Amorphous Sediment (None) /hpf Urine Bacteria (None) /hpf Urine Mucus (None) /hpf Assessment and Plan Assessment: Postoperative day #1. Patient is resting without complaints. Vital signs are stable she is afebrile. Uterus is firm nontender and her incision is intact and dry. CBC shows a hemoglobin 9.4. Plan today is to discontinue her catheter, encourage ambulation, answered diet, and continue routine postoperative care. (1) Gestational hypertension Current Visit: Yes Status: Acute Code(s): O13.9 - GESTATIONAL HTN W/O SIGNIFICANT PROTEINURIA, UNSP TRIMESTER SNOMED Code(s): 069663095 (2) Group B streptococcal carriage complicating Current Visit: No Status: Acute Code(s): O99.820 - STREPTOCOCCUS B CARRIER STATE COMPLICATING SNOMED Code(s): 347320682213024 (3) Encounter for induction of labor Current Visit: Yes Status: Acute Code(s): Z34.90 - ENCNTR FOR SUPRVSN OF NORMAL , UNSP, UNSP TRIMESTER SNOMED Code(s): 142103116
[2020-10-20] MEDS: FERROUS SULFATE 325 MG TAB PO SCH ×2 (07:38→17:26)
[2020-10-20] MEDS: SENNOSIDES-DOCUSATE SODIUM 1 EACH TAB PO SCH ×2 (07:38→20:07)
[2020-10-20] MEDS: IBUPROFEN 600 MG TAB PO PRN ×2 (16:06→22:41)
[2020-10-20] MEDS: LACTATED RINGERS 1,000 ML IV SCH (21:01)
[2020-10-20] MEDS: AMPICILLIN 1,000 MG in SODIUM CHLORIDE 0.9% 50 ML IVPB SCH (21:03)
[2020-10-21] MEDS: ACETAMINOPHEN TAB 500 MG TAB PO PRN ×2 (01:50→08:03)
[2020-10-21] MEDS: IBUPROFEN 600 MG TAB PO PRN ×2 (05:42→11:42)
--- NOTE | 2020-10-21 07:51 | P.PNOBGPC ---
Subjective - Subjective Patient reports: Reports appetite normal, Reports voiding normally, Reports pain well controlled, Reports ambulating normally : doing well Objective - Vital Signs Latest vital signs: Vital Signs Temp Pulse Resp BP Pulse Ox 10/20/20 23:33 97.6 F 87 16 110/68 99 10/20/20 20:00 98.0 F 92 16 108/66 98 10/20/20 16:00 97.7 F 95 16 112/63 98 10/20/20 12:00 87 16 104/69 100 10/20/20 08:00 97.6 F 75 16 107/68 100 Intake and Output 10/20/20 10/21/20 10/21/20 22:59 06:59 14:59 Other: # Voids 2 - Exam Lungs: bilateral: normal Chest: Normal S1, Normal S2 Extremities: Present: normal Abdomen: Present: normal appearance, soft. Absent: distention, tenderness Incision: Present: normal, dry, intact Uterus: Present: normal, firm Assessment and Plan Assessment: Postoperative day #2. Patient is resting without complaints and wishes to go home. Vital signs are stable and she is afebrile. Uterus is firm nontender and she is having normal lochia. Incision is intact and dry. My impression is a normal course. Plan is to continue routine postoperative care and discharge home later today. (1) Gestational hypertension Current Visit: Yes Status: Acute Code(s): O13.9 - GESTATIONAL HTN W/O SIGNIFICANT PROTEINURIA, UNSP TRIMESTER SNOMED Code(s): 575397990 (2) Group B streptococcal carriage complicating Current Visit: No Status: Acute Code(s): O99.820 - STREPTOCOCCUS B CARRIER STATE COMPLICATING SNOMED Code(s): 913680737872724 (3) Encounter for induction of labor Current Visit: Yes Status: Acute Code(s): Z34.90 - ENCNTR FOR SUPRVSN OF NORMAL , UNSP, UNSP TRIMESTER SNOMED Code(s): 733391591
--- NOTE | 2020-10-21 07:57 | P.DS ---
Providers Date of admission: 10/19/20 11:22 Expected date of discharge: 10/21/20 Attending physician: Davonte Fletcher Primary care physician: Stated None - Discharge Diagnosis(es) (1) Gestational hypertension Current Visit: Yes Status: Acute (2) Group B streptococcal carriage complicating Current Visit: No Status: Acute (3) Encounter for induction of labor Current Visit: Yes Status: Acute Hospital Course: Please see dictated H&P for intimate details of this patient's admission. Brief summary this pleasant 25-year-old 3 para 2 female 37 weeks gestation admitted to labor and delivery for gestational hypertension. Patient goes on to have a primary low transverse section for nonreassuring heart tones secondary to a nuchal cord. Please see dictated operative note. Postoperative patient does well on postoperative #2 silk be stable for discharge home follow up with me in 1 week. Procedures: Induction of labor and primary low transverse section Patient Condition at Discharge: Good Plan - Discharge Summary New Discharge Prescriptions: New Ibuprofen [Motrin] 600 mg PO Q6H PRN #30 tab PRN Reason: Pain oxyCODONE HCL [OxyIR] 5 mg PO Q4HR PRN #18 tab PRN Reason: Pain Ferrous Sulfate [Iron (65 MG Elemental)] 325 mg PO BID-W/MEALS #60 tab No Action Pnv No.95/Ferrous Fum/Folic AC [ Multivitamin Tablet] 1 tab PO DAILY Discharge Medication List Pnv No.95/Ferrous Fum/Folic AC [ Multivitamin Tablet] 1 tab PO DAILY 10/19/20 [History] Ferrous Sulfate [Iron (65 MG Elemental)] 325 mg PO BID-W/MEALS #60 tab 10/21/20 [Rx] Ibuprofen [Motrin] 600 mg PO Q6H PRN #30 tab 10/21/20 [Rx] oxyCODONE HCL [OxyIR] 5 mg PO Q4HR PRN #18 tab 10/21/20 [Rx] Follow up Appointment(s)/Referral(s): Davonte Fletcher MD [STAFF PHYSICIAN] - 1 Week (Please see me in 6 weeks for check as well and in 1 week for an incision check) Patient Instructions/Handouts: (DC) Activity/Diet/Wound Care/Special Instructions: No heavy lifting or strenuous activity for 6 weeks. Please call if any fever, chills, excessive vaginal bleeding, and/or abdominal pain.
[2020-10-21] MEDS: SENNOSIDES-DOCUSATE SODIUM 1 EACH TAB PO SCH (08:02)
[2020-10-21] MEDS: FERROUS SULFATE 325 MG TAB PO SCH (08:02)
[2020-10-21 08:25] VITALS: BP 118/77; PULSE 73; RESP 18; TEMP 98.5
--- NOTE | 2020-10-21 18:57 | P.PN ---
Progress Note - Text Date:10/20/20 Time:1204 Patient is status post . Patient seen this morning with VAS score of 2.no c/o of pruritus, no c/o nausea/vomiting, comfortable and doing well.
== END 2020-10-21 12:13 | disposition home or self-care (01) | DRG 788 ==
LOC: FBPOP 09:50 → 4FBP 11:22
PROVIDERS: ADMIT Obstetrics & Gynecology; ATTEND Obstetrics & Gynecology
PROC: 10D00Z1 Extraction of Products of Conception, Low, Open Approach (ICD-10-PCS; principal; 2020-10-19 20:11)
DX: O13.4 Gestational [pregnancy-induced] hypertension without significant proteinuria, complicating childbirth (principal); O69.81X0 Labor and delivery complicated by cord around neck, without compression, not applicable or unspecified; O76 Abnormality in fetal heart rate and rhythm complicating labor and delivery; O99.824 Streptococcus B carrier state complicating childbirth; Z37.0 Single live birth; Z3A.37 37 weeks gestation of pregnancy; Z82.49 Family history of ischemic heart disease and other diseases of the circulatory system
CPT/HCPCS: 59025; 74018; 81001; 82565; 82570; 83615; 84156; 84450; 84460; 84520; 84550; 85025; 88307

== ENCOUNTER 2021-08-23 09:28 | Outpatient (CLI) | payer BC, OTHER ==
[2021-08-23 10:29] LABS: Creatinine,Urine Random 45.4 mg/dL; Protein/Creatinine Ratio,Urine 0.154
[2021-08-23 10:48] LABS: Anisocytosis Slight; Basophils # (A) 0.1 k/uL (0-0.2); Basophils % (A) 1 %; Eosinophils # (A) 0.1 k/uL (0-0.7); Eosinophils % (A) 1 %; HCT 34.6 % (34.0-46.0); Hypochromasia Moderate; Lymphocytes # (A) 1.5 k/uL (1.0-4.8); Lymphocytes % (A) 13 %; MCH 26.3 pg (25.0-35.0); MCHC 31.8 g/dL (31.0-37.0); MCV 82.8 fL (80.0-100.0); Mean Platelet Volume 10.2; Monocytes # (A) 0.5 k/uL (0-1.0); Monocytes % (A) 4 %; Neutrophils # (A) 9.1 k/uL (1.3-7.7); Neutrophils % (A) 80 %; Platelet Count 199 k/uL (150-450); Poikilocytosis Slight; RBC 4.18 m/uL (3.80-5.40); RDW 16.8 % (11.5-15.5); WBC 11.4 k/uL (3.8-10.6)
[2021-08-23 11:00] LABS: ALT 14 U/L (4-34); AST 18 U/L (14-36); African American GFR (CKD) >90 (>60 ml/min/1.73 sqM); Blood Urea Nitrogen 6 mg/dL (7-17); LDH 435 U/L (313-618); Non-African American GFR(CKD) >90 (>60 ml/min/1.73 sqM); Uric Acid 2.6 mg/dL (3.7-7.4)
[2021-08-23 11:43] VITALS: BP 140/94; PULSE 106; RESP 16; TEMP 96.4
--- NOTE | 2021-08-24 00:48 | P.MSEPDOC ---
Presenting Problems - Arrival Data Date of Arrival on Unit: 08/23/21 Time of Arrival on Unit: 09:28 Mode of Transport: Ambulatory - Complaint OB-Reason for Admission/Chief Complaint: PIH Comment: Patient sent over from the office for elevated blood pressures. Medical History - Information : 4 Para: 3 Term: 3 : 0 Abortions: Spontaneous or Elective: 0 Number of Living Children: 3 - Gestational Age Gestational Age by JUANY (wks/days): 32 Weeks and 5 Days Review of Systems - Review of Systems Constitutional: No problems Breast: No problems ENT: No problems Cardiovascular: No problems Respiratory: No problems Gastrointestinal: No problems Genitourinary: No problems Musculoskeletal: No problems Neurological: No problems Skin: No problems Vital Signs - Temperature Temperature: 96.4 F Temperature Source: Temporal Artery Scan - Pulse Pulse Oximetery Pulse Rate: 106 Pulse Assessment Method: Automatic Cuff - Respirations Respiratory Rate: 16 Oxygen Delivery Method: Room Air O2 Sat by Pulse Oximetry: 98 - Blood Pressure Sitting Blood Pressure: 140/94 Blood Pressure Mean: 109 Blood Pressure Source: Automatic Cuff Medical Screen Scoring - Uterine Contractions Intensity: Absent - Assessment - Baby A Baseline FHR: 140 Heart Rate - NICHD Category: Category I (Normal) Physician Notification - Physician Notified Physician Notified Date: 08/23/21 Physician Notified Time: 10:49 Physician: Davonte Fletcher Order Received: No - Notification Comment Comment: Physician states that if labs are within normal limits okay to discharge patient home with instructions and to follow up with next regularly scheduled appointment. Maternal Triage Index - Scheduled/Requesting Priority 5 Scheduled/Requesting Priority 5: Yes Criteria Met for Priority 5: Patient sent over from the office with orders for PIH workup. Disposition - Disposition OB Disposition: Discharge to home, Written follow up instructions reviewed Discharge Date: 08/23/21 Discharge Time: 11:29 I agree with the RN Medical Screening Exam: Yes Case reviewed; plan agreed upon as documented in EMR&OBIX.: Yes Diagnosis: GESTATIONAL HTN W/O SIGNIFICANT PROTEINURIA, THIRD TRIMESTER (Patient is admitted from the office for evaluation of hypertension. Patient's blood pressures do not require treatment for preeclampsia labs are normal. Diagnosis at this time is consistent with gestational hypertension. Patient will follow up with me in 1 week as scheduled. No evidence of maternal compromise.)
== END 2021-08-23 11:29 | disposition home or self-care (01) ==
LOC: FBPOP 09:28
PROVIDERS: ATTEND Obstetrics & Gynecology
DX: O13.3 Gestational [pregnancy-induced] hypertension without significant proteinuria, third trimester (principal); Z3A.32 32 weeks gestation of pregnancy
CPT/HCPCS: 59025; 82565; 82570; 83615; 84156; 84450; 84460; 84520; 84550; 85025; 99215

== ENCOUNTER 2021-09-09 16:37 | Observation (INO) | payer BC, OTHER ==
[2021-09-09 17:22] LABS: Amorphous Sediment,Urine Rare /hpf; Appearance,Urine Cloudy (Clear); Bacteria,Urine Few /hpf; Bilirubin,Urine Negative (Negative); Blood,Urine Negative (Negative); Budding Yeast,Urine Rare /hpf; Color,Urine Light Yellow; Glucose,Urine (UA) Negative (Negative); Ketones,Urine 1+ (Negative); Leukocyte Esterase,Urine Large (Negative); Mucus,Urine Rare /hpf; Nitrite,Urine Negative (Negative); PH, Urine 5.5 (5.0-8.0); Protein,Urine Negative (Negative); Specific Gravity,Urine 1.008 (1.001-1.035); Squamous Epithelial Cell,Urine 25 /hpf (0-4); Urobilinogen,Urine <2.0 mg/dL (<2.0); WBC,Urine 6 /hpf (0-5)
[2021-09-09 17:40] LABS: Creatinine,Urine Random 26.5 mg/dL; Protein/Creatinine Ratio,Urine 0.566
[2021-09-09 17:51] LABS: ALT 13 U/L (4-34); AST 23 U/L (14-36); African American GFR (CKD) >90 (>60 ml/min/1.73 sqM); Blood Urea Nitrogen 5 mg/dL (7-17); LDH 567 U/L (313-618); Non-African American GFR(CKD) >90 (>60 ml/min/1.73 sqM); Uric Acid 3.2 mg/dL (3.7-7.4)
[2021-09-09 17:52] LABS: Anisocytosis Slight; Basophils % (A) 0 %; Eosinophils # (A) 0.1 k/uL (0-0.7); Eosinophils % (A) 1 %; HCT 34.2 % (34.0-46.0); HGB 10.9 gm/dL (11.4-16.0); Hypochromasia Moderate; Lymphocytes # (A) 1.9 k/uL (1.0-4.8); Lymphocytes % (A) 16 %; MCH 25.8 pg (25.0-35.0); MCV 80.7 fL (80.0-100.0); Mean Platelet Volume 10.8; Monocytes # (A) 0.4 k/uL (0-1.0); Monocytes % (A) 4 %; Neutrophils # (A) 9.3 k/uL (1.3-7.7); Neutrophils % (A) 77 %; Platelet Count 209 k/uL (150-450); Poikilocytosis Slight; RBC 4.24 m/uL (3.80-5.40)
[2021-09-09 18:06] LABS: INR 0.8 (<1.2); Prothrombin Time 9.4 sec (9.0-12.0)
[2021-09-09] MEDS: BETAMET ACET-BETAMETH SOD PHOS 6 MG/ML MDV IM SCH (18:50)
[2021-09-10 05:59] LABS: ALT 13 U/L (4-34); AST 20 U/L (14-36); African American GFR (CKD) >90 (>60 ml/min/1.73 sqM); Blood Urea Nitrogen 4 mg/dL (7-17); LDH 465 U/L (313-618); Non-African American GFR(CKD) >90 (>60 ml/min/1.73 sqM); Uric Acid 3.3 mg/dL (3.7-7.4)
[2021-09-10 06:10] LABS: Anisocytosis Slight; Basophils % (A) 0 %; Eosinophils % (A) 0 %; HCT 34.4 % (34.0-46.0); Hypochromasia Moderate; Lymphocytes # (A) 1.3 k/uL (1.0-4.8); Lymphocytes % (A) 9 %; MCH 25.9 pg (25.0-35.0); MCV 80.8 fL (80.0-100.0); Mean Platelet Volume 10.8; Monocytes # (A) 0.3 k/uL (0-1.0); Monocytes % (A) 2 %; Neutrophils # (A) 11.8 k/uL (1.3-7.7); Neutrophils % (A) 88 %; Platelet Count 216 k/uL (150-450); Poikilocytosis Slight; RBC 4.26 m/uL (3.80-5.40); WBC 13.5 k/uL (3.8-10.6)
--- NOTE | 2021-09-10 06:45 | P.HPOB ---
History of Present Illness H&P Date: 09/10/21 Chief Complaint: Headache and blurry vision This patient is a pleasant 26-year-old 4 para 3 female estimated date of confinement 10/13/2021 estimated gestational age 35-2/7 weeks gestation who is admitted by Dr. Fajardo last evening with complaints of visual changes and headache. Patient's been followed with gestational hypertension and most recently had blood work the and the last week which was normal. Patient's blood pressures range normally from 120s to 130s over 80s to 90s occasionally 130/100. Patient presented with these complaints. Blood pressures here running 140s over 80s 140s over 90s currently 130s over 60s. Blood work 2 was negative for preeclampsia she does have a mild protein creatinine ratio elevation of 0.5. otherwise has been uncomplicated. She has been on baby aspirin secondary to history of gestational hypertension with her last . She also scheduled for repeat and tubal ligation at 37 weeks. Review of Systems Constitutional: Reports as per HPI Genitourinary: Reports Menstruation: Reports amenorrhea Past Medical History Past Medical History: No Reported History Additional Past Medical History / Comment(s): Patient's had 2 previous vaginal deliveries. Patient's had 1 section History of Any Multi-Drug Resistant Organisms: None Reported Past Surgical History: Appendectomy, Section Additional Past Surgical History / Comment(s): Patient has had one previous section Past Anesthesia/Blood Transfusion Reactions: No Reported Reaction Past Psychological History: No Psychological Hx Reported Smoking Status: Never smoker Past Alcohol Use History: None Reported Past Drug Use History: None Reported - Past Family History Mother Family Medical History: Hypertension Medications and Allergies Home Medications Medication Instructions Recorded Confirmed Type Pnv No.95/Ferrous Fum/Folic AC 1 tab PO DAILY 10/19/20 09/09/21 History [ Multivitamin Tablet] Allergies Allergy/AdvReac Type Severity Reaction Status Date / Time No Known Allergies Allergy Verified 09/09/21 16:45 Exam Vital Signs Temp Pulse Pulse Resp BP Pulse Ox 09/09/21 23:44 96.6 F L 110 H 18 118/76 98 09/09/21 20:00 98.8 F 87 17 148/91 100 09/09/21 16:44 97.0 F L 120 H 18 142/88 99 Intake and Output 09/09/21 09/09/21 09/10/21 14:59 22:59 06:59 Intake Total 600 Balance 600 Intake: Oral 600 Other: # Voids 1 Weight 86.183 kg - OBG Physical Exam Abdomen: bowel sounds normal, no diffuse tenderness, no bruit present, no guarding noted, no hepatomegaly, no splenomegaly, no mass Vulva: both: normal Vagina: normal moisture, no discharge Uterus: enlarged Results labs show she is O positive, rubella immune, RPR nonreactive, hepatitis B negative, HIV is nonreactive, Glucola was normal, growth ultrasounds of shown excellent growth. Result Diagrams: 09/10/21 05:38 09/10/21 05:38 Abnormal Lab Results - Last 24 Hours (Table) 09/09/21 09/09/21 09/09/21 Range/Units 16:55 17:25 17:25 WBC 12.0 H (3.8-10.6) k/uL Hgb 10.9 L (11.4-16.0) gm/dL RDW 16.0 H (11.5-15.5) % Neutrophils # 9.3 H (1.3-7.7) k/uL BUN 5 L (7-17) mg/dL Creatinine 0.34 L (0.52-1.04) mg/dL Uric Acid 3.2 L (3.7-7.4) mg/dL Urine Appearance Cloudy H (Clear) Urine Ketones 1+ H (Negative) Ur Leukocyte Esterase Large H (Negative) Urine WBC 6 H (0-5) /hpf Ur Squamous Epith Cells 25 H (0-4) /hpf Amorphous Sediment Rare H (None) /hpf Urine Bacteria Few H (None) /hpf Urine Mucus Rare H (None) /hpf Urine Yeast (Budding) Rare H (None) /hpf 09/10/21 09/10/21 Range/Units 05:38 05:38 WBC 13.5 H (3.8-10.6) k/uL Hgb 11.0 L (11.4-16.0) gm/dL RDW 16.0 H (11.5-15.5) % Neutrophils # 11.8 H (1.3-7.7) k/uL BUN 4 L (7-17) mg/dL Creatinine 0.37 L (0.52-1.04) mg/dL Uric Acid 3.3 L (3.7-7.4) mg/dL Urine Appearance (Clear) Urine Ketones (Negative) Ur Leukocyte Esterase (Negative) Urine WBC (0-5) /hpf Ur Squamous Epith Cells (0-4) /hpf Amorphous Sediment (None) /hpf Urine Bacteria (None) /hpf Urine Mucus (None) /hpf Urine Yeast (Budding) (None) /hpf Assessment and Plan Assessment: This is a pleasant 26-year-old 4 para 3 female 35-2/7 weeks gestation admitted to labor and delivery with visual concerns and headache. Patient has known gestational hypertension without evidence of preeclampsia. Patient is given a dose of Celestone last evening. I had a long discussion with her and her about the condition and management I do feel that she was able to be discharged home however patient is very anxious and does not feel comfortable going home at this time. Plan is to continue admission inpatient and repeat her Celestone this evening. Serial blood pressures and monitoring. (1) 35 to 36 weeks gestation of Current Visit: Yes Status: Acute Code(s): DDU0630 - SNOMED Code(s): 071008673 (2) Previous delivery affecting Current Visit: Yes Status: Acute Code(s): O34.219 - MATERNAL CARE FOR UNSP TYPE SCAR FROM PREVIOUS DEL SNOMED Code(s): 050616973 (3) Gestational hypertension Current Visit: No Status: Acute Code(s): O13.9 - GESTATIONAL HTN W/O SIGNIFICANT PROTEINURIA, UNSP TRIMESTER SNOMED Code(s): 10098871
[2021-09-10 08:23] LABS: Creatinine,Urine Random 32.8 mg/dL; Protein/Creatinine Ratio,Urine 0.488
[2021-09-10] MEDS: LACTATED RINGERS 500 ML IV SCH ×5 (13:30→18:09)
[2021-09-10] MEDS: LACTATED RINGERS 1,000 ML IV SCH ×2 (14:00→18:03)
[2021-09-10] MEDS: BETAMET ACET-BETAMETH SOD PHOS 6 MG/ML MDV IM SCH (18:03)
--- NOTE | 2021-09-10 18:06 | P.PN ---
Progress Note - Text Progress Note Date: 09/10/21 Gogo had an episode today of lightheadedness and tachycardia. I did come see the patient and heart tones are reactive and her blood pressure was good however pulse was elevated 150s. EKG showed normal sinus tachycardia. Pulses subsequently come back down to normal. I'm uncertain as to what this episode was there is some concern that perhaps is anxiety related. I did discuss with her I would like to check her thyroid tests and do a complete obstetrical ultrasound which she was due to get today at the office anyways. She has expressed her wish to have this baby at this time however I explained to her and her and quite a lot of detail that I do not have an medical indication to proceed with delivery at least at this moment. She is given receive her second dose of Celestone and will continue inpatient observation this evening. If she did continue to do well we discussed possibly going home tomorrow and going off work and plan with close observation and delivery at 37 weeks.
[2021-09-10 18:30] LABS: T4, Free (Free Thyroxine) 0.77 ng/dL (0.78-2.19)
[2021-09-10 20:22] VITALS: RESP 16
--- NOTE | 2021-09-10 21:15 | US ---
EXAMINATION TYPE: US OB >= 14 wk fetus DATE OF EXAM: 09/10/2021 COMPARISON: None CLINICAL HISTORY: PainPatient presents with pain; patient is scheduled for a 09/23/21 TECHNIQUE: Transabdominal (TA) GESTATIONAL AGE / DATING Physician Established: 10/13/21 (35 weeks/2 days) EDC: 10/13/21 Dates by First Scan: No previous this is first scan here Dates by Current Scan: 10/15/21 (35 weeks/0 days) EDC: 10/15/21 Beta HCG (if available): Not available at this time SURVEY IUP: Single PLACENTA: Anterior PREVIA: No Previa VISHNU: 12.84 cm Normal CERVICAL LENGTH (transabdominal: norm > 3.0cm): 3.86 cm BIOMETRY PRESENTATION: Breech LIE: Oblique BPD: 8.71 cm 35 weeks / 2 days HC: 31.96 cm 36 weeks / 1 days AC: 31.29 cm 35 weeks / 2 days FL: 6.41 cm 33 weeks / 1 days ESTIMATED WEIGHT IN GRAMS: 2502 grams ESTIMATED WEIGHT IN LBS/OZ: 5 lbs. 8 oz. WEIGHT PERCENTAGE BASED ON ESTABLISHED DATES: 32% HC/AC: 1.02 Normal FL/AC: 20% Normal HEART RATE: 135 bpm RHYTHM: Normal No abnormal cervical thinning. Single live intrauterine gestation is present. Breech presentation to fetus currently noted. No placenta previa. Estimated amniotic fluid index within normal limits. biometry measurements congruent and within normal limits. IMPRESSION: As above.
[2021-09-11] MEDS: LACTATED RINGERS 1,000 ML IV SCH (02:04)
[2021-09-11 04:22] VITALS: BP 112/57; TEMP 97.2
--- NOTE | 2021-09-11 06:49 | P.PN ---
Progress Note - Text Progress Note Date: 09/11/21 Hospital day #2. Patient's 36-4/7 weeks gestation. Yesterday she had an episode of what appeared to be anxiety related do a complete evaluation including EKG which was normal sinus tachycardia and normal thyroid testing. Ultrasound yesterday showed a growth appropriate fetus was breech 5 lbs. 8 oz. with normal amniotic fluid index. Patient slept overnight and her blood pressures are excellent 120-130/60 80s and this morning she was 112/57. I did sit down again with her and her have a long discussion about her clinical condition and treatment plan/delivery plan. This point she is comfortable going home I do want her on rest at home and therefore I recommended she stop working. She'll come see me in 2 days for nonstress test repeat blood pressure check. Unless something changes we'll plan on delivery at 37 weeks as scheduled by . Patient was completely agreeable to this plan.
--- NOTE | 2021-09-11 06:52 | P.DS ---
Providers Date of admission: 09/09/21 18:37 Expected date of discharge: 09/11/21 Attending physician: Davonte Fletcher Primary care physician: Davonte Fletcher - Discharge Diagnosis(es) (1) 35 to 36 weeks gestation of Current Visit: Yes Status: Acute (2) Previous delivery affecting Current Visit: Yes Status: Acute (3) Gestational hypertension Current Visit: No Status: Acute Hospital Course: Please see dictated H&P and progress notes on this patient's admission. Brief summary this is a pleasant 26-year-old 4 para [address] Fajardo with platelets of dizziness and known gestational hypertension. Patient does have some mild blood pressure elevations that come down to normal and has serial preeclampsia labs and continue to be normal. She did have slight elevation of her protein to creatinine ratio but no evidence of preeclampsia. Patient developed an episode of tachycardia which was evaluated and found to be negative possible anxiety episode. Complete obstetrical ultrasound was normal. Antepartum testing was normal. On hospital day #2 she is felt to be stable for discharge home follow up with me as an outpatient. Given instructions to call if she has signs or symptoms of preeclampsia. Patient Condition at Discharge: Stable Plan - Discharge Summary New Discharge Prescriptions: No Action Pnv No.95/Ferrous Fum/Folic AC [ Multivitamin Tablet] 1 tab PO DAILY Discharge Medication List Pnv No.95/Ferrous Fum/Folic AC [ Multivitamin Tablet] 1 tab PO DAILY 10/19/20 [History] Follow up Appointment(s)/Referral(s): Davonte Fletcher MD [Primary Care Provider] - 09/13/21 (Please follow up Thursday as scheduled.) Patient Instructions/Handouts: Hypertension During (ED) Discharge Disposition: HOME SELF-CARE
[2021-09-11 08:02] VITALS: PULSE 120
--- NOTE | 2021-09-11 08:02 | P.MSEPDOC ---
Presenting Problems - Arrival Data Date of Arrival on Unit: 09/09/21 Time of Arrival on Unit: 18:37 Mode of Transport: Portable - Complaint OB-Reason for Admission/Chief Complaint: Headache, Visual Disturbances, PIH Medical History - Information : 4 Para: 3 Term: 3 : 0 Abortions: Spontaneous or Elective: 0 Number of Living Children: 3 - Gestational Age Gestational Age by JUANY (wks/days): 35 Weeks and 1 Days - History Complications: Prior Review of Systems - Review of Systems Constitutional: No problems Breast: No problems ENT: No problems Cardiovascular: No problems Respiratory: No problems Gastrointestinal: No problems Genitourinary: No problems Musculoskeletal: No problems Neurological: No problems Skin: No problems Vital Signs - Temperature Temperature: 97.2 F Temperature Source: Temporal Artery Scan - Pulse Apical Pulse Rate: 120 Pulse Assessment Method: Automatic Cuff Pulse Oximetery Pulse Rate: 98 Pulse Assessment Method: Automatic Cuff - Respirations Respiratory Rate: 16 Oxygen Delivery Method: Room Air O2 Sat by Pulse Oximetry: 98 - Blood Pressure Right Arm Blood Pressure: 112/57 Blood Pressure Mean: 75 Blood Pressure Source: Automatic Cuff Medical Screen Scoring - Cervical Exam Dilation (cm): 0 - Uterine Contractions Frequency From (mins): 1 Frequency To (mins): 3 Duration From (seconds): 30 Duration To (seconds): 50 Intensity: Mild Resting: Soft to palpation - Assessment - Baby A Baseline FHR: 140 Heart Rate - NICHD Category: Category I (Normal) NST: Reactive Physician Notification - Physician Notified Physician Notified Date: 09/09/21 Physician Notified Time: 17:06 Physician: Radha Fajardo New Order Received: Yes - Notification Comment Comment: [facility] labs were run, P/C/R 0.556, some bp's elevated, orders to keep pt, OBV and redraw labs in AM, start Betamethasone injections Maternal Triage Index - Maternal Triage Index Presenting for scheduled procedure w/no complaint: No - Stat/Priority 1 Stat Priority 1: No - Urgent/Priority 2 Urgent Priority 2: Yes Provider Notified: Radha Fajardo Provider Notified Time: 17:06 Criteria Met for Priority 2: GA 35 1/7, presents to triage for loss of vision x 2 and spots, also having nausea Disposition - Disposition OB Disposition: Observe I agree with the RN Medical Screening Exam: Yes Case reviewed; plan agreed upon as documented in EMR&OBIX.: Yes Diagnosis: GESTATIONAL HTN W/O SIGNIFICANT PROTEINURIA, THIRD TRIMESTER
== END 2021-09-11 09:30 | disposition home or self-care (01) ==
LOC: FBPOP 16:37 → 4FBP 18:37 → INTOOBSV 18:37
PROVIDERS: ADMIT Obstetrics & Gynecology; ATTEND Obstetrics & Gynecology
DX: O13.3 Gestational [pregnancy-induced] hypertension without significant proteinuria, third trimester (principal); O34.219 Maternal care for unspecified type scar from previous cesarean delivery; O99.891 Other specified diseases and conditions complicating pregnancy; R00.0 Tachycardia, unspecified; O32.1XX0 Maternal care for breech presentation, not applicable or unspecified; Z3A.35 35 weeks gestation of pregnancy; Z90.49 Acquired absence of other specified parts of digestive tract; Z82.49 Family history of ischemic heart disease and other diseases of the circulatory system
CPT/HCPCS: 59025; 99215; 96372 ×2; 84439; 82570 ×2; 84443; 84156 ×2; 82565 ×2; 83615 ×2; 84450 ×2; 84460 ×2; 84520 ×2; 84550 ×2; 85025 ×2; 85610; 85730; 81001; 76805; G0378 ×3; J0702 ×2

== ENCOUNTER 2021-09-13 10:35 | Inpatient (IN) | payer BC, OTHER ==
[2021-09-13] MEDS ORDERED: CITRIC ACID-SODIUM CITRATE 15 ML CUP PO ONE (11:26)
[2021-09-13 11:37] LABS: Anisocytosis Slight; Basophils # (A) 0.1 k/uL (0-0.2); Basophils % (A) 0 %; Eosinophils # (A) 0.1 k/uL (0-0.7); Eosinophils % (A) 1 %; HCT 32.5 % (34.0-46.0); HGB 10.5 gm/dL (11.4-16.0); Hypochromasia Moderate; Lymphocytes # (A) 1.8 k/uL (1.0-4.8); Lymphocytes % (A) 15 %; MCH 25.7 pg (25.0-35.0); MCHC 32.3 g/dL (31.0-37.0); MCV 79.5 fL (80.0-100.0); Mean Platelet Volume 10.5; Monocytes # (A) 0.6 k/uL (0-1.0); Monocytes % (A) 5 %; Neutrophils # (A) 8.7 k/uL (1.3-7.7); Neutrophils % (A) 76 %; Platelet Count 209 k/uL (150-450); Poikilocytosis Slight; RBC 4.09 m/uL (3.80-5.40); WBC 11.5 k/uL (3.8-10.6)
[2021-09-13 11:44] LABS: Appearance,Urine Cloudy (Clear); Bilirubin,Urine Negative (Negative); Blood,Urine Negative (Negative); Color,Urine Light Yellow; Glucose,Urine (UA) Negative (Negative); Ketones,Urine Negative (Negative); Leukocyte Esterase,Urine Large (Negative); Mucus,Urine Rare /hpf; Nitrite,Urine Negative (Negative); Protein,Urine Negative (Negative); RBC,Urine 1 /hpf (0-5); Squamous Epithelial Cell,Urine 10 /hpf (0-4); Urobilinogen,Urine <2.0 mg/dL (<2.0); WBC,Urine 14 /hpf (0-5)
[2021-09-13 11:53] LABS: ALT 13 U/L (4-34); AST 20 U/L (14-36); African American GFR (CKD) >90 (>60 ml/min/1.73 sqM); Blood Urea Nitrogen 5 mg/dL (7-17); LDH 429 U/L (313-618); Non-African American GFR(CKD) >90 (>60 ml/min/1.73 sqM); Uric Acid 3.3 mg/dL (3.7-7.4)
[2021-09-13 12:55] LABS: Creatinine,Urine Random 49.8 mg/dL; Protein/Creatinine Ratio,Urine 0.161
--- NOTE | 2021-09-13 13:23 | P.HPOB ---
History of Present Illness H&P Date: 09/13/21 Chief Complaint: Headache and elevated blood pressure This patient is a pleasant 26-year-old 4 para 3 female estimated date of confinement 10/13/2021 estimated gestational age 35-5/7 weeks who is admitted earlier this week for 2 days for evaluation of gestational hypertension and preeclampsia. Patient's serial labs that were normal however she did have an elevated protein to creatinine ratio at that time. Patient's was given steroids at that time discharge home follow up with me 2 days. Patient repairs that the office today with blood pressure 154/92 and sent to labor and delivery for evaluation here similarly blood pressures elevated here. Repeat labs are normal however she does complain of a headache therefore she now fulfills criteria for severe preeclampsia and in discussion with her we are going to proceed with delivery. Patient is a previous section request repeat and tubal ligation. Patient also was breech on her last ultrasound Review of Systems Ears, nose, mouth and throat: Reports headache Genitourinary: Reports Menstruation: Reports amenorrhea Past Medical History Past Medical History: No Reported History Additional Past Medical History / Comment(s): Patient's had 2 previous vaginal deliveries. Patient's had 1 section History of Any Multi-Drug Resistant Organisms: None Reported Past Surgical History: Appendectomy, Section Additional Past Surgical History / Comment(s): Patient has had one previous section Past Anesthesia/Blood Transfusion Reactions: No Reported Reaction Past Psychological History: No Psychological Hx Reported Smoking Status: Never smoker Past Alcohol Use History: None Reported Past Drug Use History: None Reported - Past Family History Mother Family Medical History: Hypertension Medications and Allergies Home Medications Medication Instructions Recorded Confirmed Type Pnv No.95/Ferrous Fum/Folic AC 1 tab PO DAILY 10/19/20 09/13/21 History [ Multivitamin Tablet] Allergies Allergy/AdvReac Type Severity Reaction Status Date / Time No Known Allergies Allergy Verified 09/13/21 10:53 Exam Vital Signs Temp Pulse Resp BP BP Pulse Ox 09/13/21 11:45 107 H 16 139/85 09/13/21 11:25 98.6 F 112 H 17 142/89 98 09/13/21 11:09 142/89 09/13/21 10:53 98.6 F 112 H 17 145/90 09/13/21 10:52 145/90 150/104 Intake and Output 09/12/21 09/13/21 09/13/21 22:59 06:59 14:59 Other: Weight 87.09 kg - OBG Physical Exam Abdomen: bowel sounds normal, no diffuse tenderness, no bruit present, no guarding noted, no hepatomegaly, no splenomegaly, no mass Vulva: both: normal Vagina: normal moisture, no discharge Cervix: no lesion (Cervix is closed), no discharge Uterus: enlarged (Fundal height 37 cm) Results blood work shows she is O positive, rubella immune, RPR nonreactive, hepatitis B negative, HIV is nonreactive, Glucola was normal, group B strep is pending, patient does have a history of positive strep with previous . Most recent ultrasound showed normal growth breech presentation. Result Diagrams: 09/13/21 11:04 09/13/21 11:04 Abnormal Lab Results - Last 24 Hours (Table) 09/13/21 09/13/21 09/13/21 Range/Units 11:00 11:04 11:04 WBC 11.5 H (3.8-10.6) k/uL Hgb 10.5 L (11.4-16.0) gm/dL Hct 32.5 L (34.0-46.0) % MCV 79.5 L (80.0-100.0) fL RDW 16.0 H (11.5-15.5) % Neutrophils # 8.7 H (1.3-7.7) k/uL BUN 5 L (7-17) mg/dL Creatinine 0.37 L (0.52-1.04) mg/dL Uric Acid 3.3 L (3.7-7.4) mg/dL Urine Appearance Cloudy H (Clear) Ur Leukocyte Esterase Large H (Negative) Urine WBC 14 H (0-5) /hpf Ur Squamous Epith Cells 10 H (0-4) /hpf Urine Mucus Rare H (None) /hpf Assessment and Plan Assessment: This is a pleasant 26-year-old 4 para 3 female 35-5/7 weeks' gestation with gestational hypertension now with severe features. Patient has had a previous section desires repeat and also requesting permanent steril ization. Plan is repeat low transverse section and bilateral partial salpingectomy. Patient will need magnesium sulfate post delivery. Patient does understand that the surgery is permanent and there is a failure rate however with a tubal ligation less than 5 per thousand. Patient also has surgery itself and apparently has risks and risks of infection, bleeding, possible injury bowel, bladder, vessels, and/or other organs. All the patient's questions are answered written consent obtained. (1) Family planning Current Visit: Yes Status: Acute Code(s): Z30.09 - ENCOUNTER FOR OT GENERAL CNSL AND ADVICE ON CONTRACEPTION SNOMED Code(s): 190167562 (2) 35 to 36 weeks gestation of Current Visit: No Status: Acute Code(s): HUZ7731 - SNOMED Code(s): 971975441 (3) Gestational hypertension Current Visit: No Status: Acute Code(s): O13.9 - GESTATIONAL HTN W/O SIGNIFICANT PROTEINURIA, UNSP TRIMESTER SNOMED Code(s): 42941781 (4) Previous delivery affecting Current Visit: No Status: Acute Code(s): O34.219 - MATERNAL CARE FOR UNSP TYPE SCAR FROM PREVIOUS DEL SNOMED Code(s): 238600181
[2021-09-13] MEDS ORDERED: OXYTOCIN 30 UNITS/500 ML NS BAG IV ONE (16:37)
[2021-09-13] MEDS ORDERED: MORPHINE SULFATE (PF) 0.3 MG/0.3 ML SYR ONE (16:37)
[2021-09-13] MEDS ORDERED: fentaNYL (PF) 50 MCG/ML 2 ML AMP ONE (16:37)
[2021-09-13] MEDS ORDERED: ePHEDrine 50 MG/ML 1 ML VIAL ONE (16:37)
[2021-09-13] MEDS ORDERED: ONDANSETRON 4 MG/2 ML VIAL ONE (16:37)
[2021-09-13] MEDS ORDERED: DEXAMETHASONE SOD PHOSPHATE 4 MG/ML 1 ML VIAL ONE (16:37)
[2021-09-13] MEDS ORDERED: KETOROLAC 15 MG/ML 1 ML VIAL ONE (16:37)
[2021-09-13] MEDS ORDERED: ONDANSETRON 4 MG/2 ML VIAL IVP PRN (17:27)
[2021-09-13] MEDS ORDERED: SIMETHICONE 80 MG CHEWABLE PO PRN (17:27)
[2021-09-13] MEDS ORDERED: METOCLOPRAMIDE 5 MG/ML 2 ML VIAL IVP PRN (17:27)
[2021-09-13] MEDS ORDERED: NALOXONE 0.4 MG/ML 1 ML VIAL IV PRN (17:27)
[2021-09-13] MEDS ORDERED: diphenhydrAMINE 25 MG CAP PO PRN (17:27)
[2021-09-13] MEDS ORDERED: ZOLPIDEM 5 MG TAB PO PRN (17:27)
[2021-09-13] MEDS ORDERED: LANOLIN CREAM 5 GM TUBE TOPICAL PRN (17:27)
[2021-09-13] MEDS ORDERED: diphenhydrAMINE 50 MG/ML 1 ML VIAL IVP PRN (17:27)
[2021-09-13] MEDS ORDERED: OXYTOCIN 30 UNITS/500 ML NS 30 UNIT in SALINE 1 500ML.BAG IV SCH (17:30)
[2021-09-13] MEDS ORDERED: CALCIUM GLUCONATE 1 GM/10 ML VIAL IV PRN (17:32)
--- NOTE | 2021-09-13 17:42 | P.OP ---
Date of Procedure: 09/13/21 Preoperative Diagnosis: #1: 35-5/7 week intrauterine 2: Preeclampsia was severe features #3: Previous section desires repeat. #4: Multi parity desires permanent sterilization Postoperative Diagnosis: Same Procedure(s) Performed: Repeat low transverse section and bilateral partial salpingectomy Anesthesia: spinal Surgeon: Davonte Fletcher Care Coordinator #1: Radha Fajardo Estimated Blood Loss (ml): 800 Pathology: other (Placenta and bilateral fallopian tube segments) Condition: stable Disposition: floor Indications for Procedure: Please see dictated H&P for intimate details of this patient's admission. In brief summary this is a pleasant 26-year-old 4 para 3 female 35-5/7 weeks gestation admitted to labor and delivery from my office with elevated blood pressures. Patient was here earlier in the week and admitted for 48 hours and had elevated blood pressures with an elevated protein to creatinine ratio. Patient was discharged home on modified bedrest follow up with me today blood pressure the office was significantly elevated she's developed a headache. This time repeat blood work was normal however due to the headache is consistent with severe futures plan is to proceed with delivery. Patient does understand that a tubal ligation is permanent. She also understands surgery itself and apparently has risks including risks of infection, bleeding, possible injury bowel, bladder, vessels, and/or other organs. All the patient's questions are answered written consent is obtained. Operative Findings: This is a vigorous viable male Apgars 6 and 7 delivery time was 1656 hrs. This patient normal appearing uterus, tubes, ovaries. Description of Procedure: This patient has a Saunders catheter placed to straight drain. She is subsequently taken to the operating room where she sat up and spinal anesthetic is administered without incident. With an adequate level of anesthesia she has abdominal prep and drape. Scalpels then taken the previous Pfannenstiel incision is incised. A second scalpel is taken down the fascia the fascia scored. Fascial incision extended bilaterally using the Castorena scissors. Fascia is then dissected off the rectus muscles sharply. Rectus muscles are the peritoneum identified and entered sharply. Peritoneal incision extended superior and inferior without difficulty. Bladder blade is then placed. The bladder peritoneum is well away from the lower uterine segment. Scalpels and taken a low transverse uterine incision is then made. Using a hemostat I enter the uterine cavity bluntly and there is loss of clear fluid. is in the vertex presentation is delivered with fundal pressure. Mouth and nares are bulb suctioned. There is no evidence of a nuchal cord. With more fundal pressure we then deliver the rest of this 's body. This is a viable male Apgars are 6 and 7 delivery time was 1656 hrs. After delivery of the infant the umbilical cord is doubly clamped and cut appears to be trivascular. The placenta is then manually extracted intact. Uterus is then externalized and uterine incision demarcated with Garcia clamps. Uterine incision is then closed using 0 Vicryl running locked fashion 2 layers. Excellent hemostasis is noted. Turned my attention a left fallopian tube approximately 4 cm from the cornual insertion a small window made to the mesial salpinx with Bovie cautery. Using a 2-0 silk I doubly ligate a 1-2 cm segment of the tube this is excised and handed off to pathology. Cauterization is done of the tubal ends. Excellent hemostasis is noted. Then turned my attention to the right fallopian tube and using a similar technique with similar results. This done the uterus placed back into the abdomen. Tubal ends and uterine incision is inspected again and appeared to be hemostatic. The parietal peritoneum was then identified and closed in 0 Vicryl running fashion. Rectus muscles reapproximated Vicryl interrupted fashion. Fascial incision is then closed using 0 PDS. Fascial incision is intact and hemostatic. Subcutaneous tissues and closed using a 3-0 Vicryl. Skin is and closed using silevstre. All counts are correct 3. There are no complications. Infant is taken to special care for observation and treatment. Mother's taken her birthing suite in satisfactory condition.
--- NOTE | 2021-09-13 17:44 | P.MSEPDOC ---
Presenting Problems - Arrival Data Date of Arrival on Unit: 09/13/21 Time of Arrival on Unit: 10:35 Mode of Transport: Ambulatory - Complaint OB-Reason for Admission/Chief Complaint: Headache, Elevated Blood Pressure Comment: pt sent over from office for elevated bps Medical History - Information : 4 Para: 3 Term: 3 : 0 Abortions: Spontaneous or Elective: 0 Number of Living Children: 3 - Gestational Age Gestational Age by JUANY (wks/days): 35 Weeks and 5 Days - History Comment: BRANDONTN Review of Systems - Review of Systems Constitutional: No problems Breast: No problems ENT: No problems Cardiovascular: No problems Respiratory: No problems Gastrointestinal: No problems Genitourinary: No problems Musculoskeletal: No problems Neurological: No problems Skin: No problems Vital Signs - Temperature Temperature: 97.0 F Temperature Source: Temporal Artery Scan - Pulse Right Brachial Pulse Rate: 67 Pulse Assessment Method: Automatic Cuff - Respirations O2 Sat by Pulse Oximetry: 99 - Blood Pressure Right Arm Blood Pressure: 142/89 Blood Pressure Mean: 106 Blood Pressure Source: Automatic Cuff Left Arm Blood Pressure: 98/51 Blood Pressure Mean: 66 Blood Pressure Source: Automatic Cuff Medical Screen Scoring - Assessment - Baby A Baseline FHR: 145 Heart Rate - NICHD Category: Category I (Normal) NST: Reactive Physician Notification - Physician Notified Physician Notified Date: 09/13/21 Physician Notified Time: 11:19 Physician: Dr Fletcher New Order Received: Yes (admit pt) Maternal Triage Index - Prompt/Priority 3 Prompt Priority 3: Yes Criteria Met for Priority 3: discussed poc with dr fletcher, repeat will be performed later today Disposition - Disposition OB Disposition: LDRP Suite I agree with the RN Medical Screening Exam: Yes Case reviewed; plan agreed upon as documented in EMR&OBIX.: Yes Diagnosis: GESTATIONAL HTN W/O SIGNIFICANT PROTEINURIA, THIRD TRIMESTER
[2021-09-13] MEDS ORDERED: MAGNESIUM SULFATE-WATER PMX 4 GM in WATER FOR INJECTION 1 100ML.BAG IVPB ONE (19:00)
[2021-09-13] MEDS: KETOROLAC 15 MG/ML 1 ML VIAL IVP SCH (22:49)
[2021-09-13] MEDS: LACTATED RINGERS 1,000 ML IV SCH (23:19)
[2021-09-13] MEDS: SENNOSIDES-DOCUSATE SODIUM 1 EACH TAB PO SCH (23:20)
[2021-09-14] MEDS: ACETAMINOPHEN TAB 500 MG TAB PO PRN ×3 (05:47→20:49)
[2021-09-14] MEDS: MAGNESIUM SULFATE-WATER PMX 20 GM in WATER FOR INJECTION 1 500ML.BAG IV SCH ×3 (05:57→15:31)
[2021-09-14] MEDS: LACTATED RINGERS 1,000 ML IV SCH ×2 (05:58→16:48)
[2021-09-14] MEDS: KETOROLAC 15 MG/ML 1 ML VIAL IVP SCH ×3 (06:51→20:11)
[2021-09-14] MEDS: SENNOSIDES-DOCUSATE SODIUM 1 EACH TAB PO SCH ×2 (07:15→20:45)
[2021-09-14 08:27] LABS: Anisocytosis Slight; Basophils % (A) 0 %; Eosinophils % (A) 0 %; HCT 29.7 % (34.0-46.0); HGB 9.6 gm/dL (11.4-16.0); Hypochromasia Moderate; Lymphocytes # (A) 1.9 k/uL (1.0-4.8); Lymphocytes % (A) 12 %; MCHC 32.4 g/dL (31.0-37.0); MCV 80.2 fL (80.0-100.0); Mean Platelet Volume 11.2; Monocytes # (A) 0.9 k/uL (0-1.0); Monocytes % (A) 6 %; Neutrophils # (A) 12.6 k/uL (1.3-7.7); Neutrophils % (A) 80 %; Platelet Count 218 k/uL (150-450); Poikilocytosis Slight; RBC 3.71 m/uL (3.80-5.40); RDW 16.1 % (11.5-15.5); WBC 15.7 k/uL (3.8-10.6)
[2021-09-14 09:01] LABS: Large Platelets Present
--- NOTE | 2021-09-14 09:33 | P.PNOBGPC ---
Subjective - Subjective Principal diagnosis: S/P RLTCS POD #1 Interval history: Pt seen and examined. Denies nausea, vomiting, chest pain, shortness of breath or any calf pain. She denies headache or any vision changes also. Her blood pressures have been stable and low since delivery. Patient reports: Reports appetite normal, Reports voiding normally, Reports pain well controlled, Reports ambulating normally Objective - Vital Signs Latest vital signs: Vital Signs Temp Pulse Resp BP BP Pulse Ox 09/14/21 07:43 97.2 F L 78 17 124/70 100 09/14/21 05:58 97.2 F L 65 12 94/50 98 09/14/21 04:00 98.1 F 66 14 101/51 98 09/14/21 02:00 69 14 107/63 97 09/14/21 00:00 96.3 F L 61 14 111/70 98 09/13/21 23:13 65 16 142/62 09/13/21 22:00 70 17 111/77 09/13/21 21:00 73 16 115/60 09/13/21 20:00 99/58 09/13/21 19:28 97.0 F L 85 17 117/73 100 09/13/21 18:58 66 17 120/72 96 09/13/21 18:25 78 16 115/69 98 09/13/21 18:11 64 16 113/66 100 09/13/21 17:53 83 17 109/57 98 09/13/21 17:44 97.0 F L 67 98/51 142/89 99 09/13/21 17:43 99 09/13/21 17:39 67 17 98/51 98 09/13/21 17:34 67 17 98/51 99 09/13/21 17:23 97.0 F L 74 17 104/55 99 09/13/21 11:45 107 H 16 139/85 09/13/21 11:25 98.6 F 112 H 17 142/89 98 09/13/21 11:09 142/89 09/13/21 10:53 98.6 F 112 H 17 145/90 09/13/21 10:52 145/90 150/104 Intake and Output 09/13/21 09/14/21 09/14/21 22:59 06:59 14:59 Intake Total 600 40 Output Total 1725 500 Balance -1125 -460 Intake: IV 600 Oral 40 Output: Urine 450 500 Uretheral (Saunders) 500 Emesis 400 Estimated Blood Loss 700 Output, Quantitative 175 Blood Loss Other: Voiding Method Indwelling Catheter Indwelling Catheter # Voids 0 # Emeses 2 - Exam Lungs: bilateral: normal Chest: Normal S1, Normal S2 Extremities: Present: normal Abdomen: Present: normal appearance, soft. Absent: distention, tenderness Incision: Present: normal, dry, intact Uterus: Present: normal, firm - Labs Labs: Abnormal Lab Results - Last 24 Hours (Table) 09/13/21 09/13/21 09/13/21 Range/Units 11:00 11:04 11:04 WBC 11.5 H (3.8-10.6) k/uL RBC (3.80-5.40) m/uL Hgb 10.5 L (11.4-16.0) gm/dL Hct 32.5 L (34.0-46.0) % MCV 79.5 L (80.0-100.0) fL RDW 16.0 H (11.5-15.5) % Neutrophils # 8.7 H (1.3-7.7) k/uL BUN 5 L (7-17) mg/dL Creatinine 0.37 L (0.52-1.04) mg/dL Uric Acid 3.3 L (3.7-7.4) mg/dL Urine Appearance Cloudy H (Clear) Ur Leukocyte Esterase Large H (Negative) Urine WBC 14 H (0-5) /hpf Ur Squamous Epith Cells 10 H (0-4) /hpf Urine Mucus Rare H (None) /hpf 09/14/21 Range/Units 07:39 WBC 15.7 H (3.8-10.6) k/uL RBC 3.71 L (3.80-5.40) m/uL Hgb 9.6 L (11.4-16.0) gm/dL Hct 29.7 L (34.0-46.0) % MCV (80.0-100.0) fL RDW 16.1 H (11.5-15.5) % Neutrophils # 12.6 H (1.3-7.7) k/uL BUN (7-17) mg/dL Creatinine (0.52-1.04) mg/dL Uric Acid (3.7-7.4) mg/dL Urine Appearance (Clear) Ur Leukocyte Esterase (Negative) Urine WBC (0-5) /hpf Ur Squamous Epith Cells (0-4) /hpf Urine Mucus (None) /hpf Assessment and Plan (1) Status post repeat low transverse section Current Visit: Yes Status: Acute Code(s): Z98.891 - HISTORY OF UTERINE SCAR FROM PREVIOUS SURGERY SNOMED Code(s): 918928780 Plan: 1. increase ambulation 2. po pain meds
[2021-09-14] MEDS: IBUPROFEN 600 MG TAB PO PRN ×2 (12:16→18:13)
--- NOTE | 2021-09-14 17:58 | P.PN ---
Progress Note - Text 09/14/21 725 am 6-year-old female status post with spinal Duramorph. Patient seen and evaluated this morning, patient has a VAS of 2 with complaints of nausea and mild pruritus. Her nausea has subsided and she is feeling a lot better
[2021-09-15] MEDS: MAGNESIUM SULFATE-WATER PMX 20 GM in WATER FOR INJECTION 1 500ML.BAG IV SCH ×2 (00:35→11:07)
[2021-09-15] MEDS: IBUPROFEN 600 MG TAB PO PRN ×3 (00:43→16:15)
[2021-09-15] MEDS: ACETAMINOPHEN TAB 500 MG TAB PO PRN ×3 (04:24→20:35)
[2021-09-15] MEDS: SENNOSIDES-DOCUSATE SODIUM 1 EACH TAB PO SCH ×2 (07:56→20:36)
--- NOTE | 2021-09-15 11:20 | P.PNOBGPC ---
Subjective - Subjective Principal diagnosis: Status post repeat low transverse postop day #2 Interval history: Patient seen and examined. Denies nausea, vomiting, chest pain, shortness of breath or any calf pain. Patient reports: Reports appetite normal, Reports voiding normally, Reports pain well controlled, Reports ambulating normally Objective - Vital Signs Latest vital signs: Vital Signs Temp Pulse Resp BP BP Pulse Ox 09/15/21 08:00 98.1 F 92 18 124/87 99 09/15/21 00:00 97.9 F 93 16 98 09/14/21 20:00 98.1 F 87 16 115/79 99 09/14/21 15:28 97.2 F L 90 16 125/58 100 09/14/21 12:19 97.6 F 102 H 17 133/78 Intake and Output 09/14/21 09/15/21 09/15/21 22:59 06:59 14:59 Intake Total 480 480 Balance 480 480 Intake: Oral 480 480 Other: # Voids 1 2 - Exam Lungs: bilateral: normal Chest: Normal S1, Normal S2 Extremities: Present: normal Abdomen: Present: normal appearance, soft. Absent: distention, tenderness Incision: Present: normal, dry, intact Uterus: Present: normal, firm Assessment and Plan (1) Status post repeat low transverse section Current Visit: Yes Status: Acute Code(s): Z98.891 - HISTORY OF UTERINE SCAR FROM PREVIOUS SURGERY SNOMED Code(s): 839669716 Plan: 1. Continue postoperative care
[2021-09-16] MEDS: IBUPROFEN 600 MG TAB PO PRN ×3 (02:08→18:20)
[2021-09-16] MEDS: ACETAMINOPHEN TAB 500 MG TAB PO PRN ×2 (05:05→19:29)
--- NOTE | 2021-09-16 06:25 | P.PNOBGPC ---
Subjective - Subjective Patient reports: Reports appetite normal, Reports voiding normally, Reports pain well controlled, Reports ambulating normally : doing well, in NICU Objective - Vital Signs Latest vital signs: Vital Signs Temp Pulse Resp BP Pulse Ox 09/15/21 23:48 98.7 F 97 17 138/75 99 09/15/21 16:00 98.9 F 102 H 18 135/88 99 09/15/21 08:00 98.1 F 92 18 124/87 99 Intake and Output 09/15/21 09/15/21 09/16/21 14:59 22:59 06:59 Other: # Voids 1 2 2 - Exam Lungs: bilateral: normal Chest: Normal S1, Normal S2 Extremities: Present: normal Abdomen: Present: normal appearance, soft. Absent: distention, tenderness Incision: Present: normal, dry, intact Uterus: Present: normal, firm Assessment and Plan Assessment: Postoperative day #3. Patient is resting without complaints Blood pressures were good. Uterus is firm nontender her incision is intact and dry. Patient's baby is still in special care therefore she wishes to stay until tomorrow. Plan is to continue routine postoperative care discharge home tomorrow (1) Family planning Current Visit: Yes Status: Acute Code(s): Z30.09 - ENCOUNTER FOR OTH GENERAL CNSL AND ADVICE ON CONTRACEPTION SNOMED Code(s): 154589720 (2) 35 to 36 weeks gestation of Current Visit: No Status: Acute Code(s): GPS0503 - SNOMED Code(s): 90204 0000 (3) Gestational hypertension Current Visit: No Status: Acute Code(s): O13.9 - GESTATIONAL HTN W/O SIGNIFICANT PROTEINURIA, UNSP TRIMESTER SNOMED Code(s): 44936544 (4) Previous delivery affecting Current Visit: No Status: Acute Code(s): O34.219 - MATERNAL CARE FOR UNSP TYPE SCAR FROM PREVIOUS DEL SNOMED Code(s): 171762658
[2021-09-16] MEDS: SENNOSIDES-DOCUSATE SODIUM 1 EACH TAB PO SCH ×2 (08:35→19:30)
[2021-09-17] MEDS: IBUPROFEN 600 MG TAB PO PRN ×3 (00:39→13:45)
[2021-09-17] MEDS: ACETAMINOPHEN TAB 500 MG TAB PO PRN ×2 (05:16→10:39)
--- NOTE | 2021-09-17 06:25 | P.PNOBGPC ---
Subjective - Subjective Patient reports: Reports appetite normal, Reports voiding normally, Reports pain well controlled, Reports ambulating normally : doing well, in NICU Objective - Vital Signs Latest vital signs: Vital Signs Temp Pulse Resp BP Pulse Ox 09/17/21 04:00 87 16 127/85 09/17/21 00:00 98.3 F 88 16 147/91 09/16/21 15:01 100 18 137/74 98 09/16/21 08:00 98.7 F 92 18 129/85 98 Intake and Output 09/16/21 09/16/21 09/17/21 14:59 22:59 06:59 Intake Total 960 Balance 960 Intake: Oral 960 - Exam Lungs: bilateral: normal Chest: Normal S1, Normal S2 Extremities: Present: normal Abdomen: Present: normal appearance, soft. Absent: distention, tenderness Incision: Present: normal, dry, intact Uterus: Present: normal, firm Assessment and Plan Assessment: Postoperative day #4. Patient is resting without new complaints. Vital signs are stable she is afebrile. Uterus is firm nontender and her incision is intact and dry. My impression this is a normal postoperative course. Plan is to continue routine postoperative care and discharge home later today. (1) Family planning Current Visit: Yes Status: Acute Code(s): Z30.09 - ENCOUNTER FOR OT GENERAL CNSL AND ADVICE ON CONTRACEPTION SNOMED Code(s): 372652289 (2) 35 to 36 weeks gestation of Current Visit: No Status: Acute Code(s): [id number] - SNOMED Code(s): 532861445 (3) Gestational hypertension Current Visit: No Status: Acute Code(s): O13.9 - GESTATIONAL HTN W/O SIGNIFICANT PROTEINURIA, UNSP TRIMESTER SNOMED Code(s): 80699320 (4) Previous delivery affecting Current Visit: No Status: Acute Code(s): O34.219 - MATERNAL CARE FOR UNSP TYPE SCAR FROM PREVIOUS DEL SNOMED Code(s): 004850253
--- NOTE | 2021-09-17 06:32 | P.DS ---
Providers Date of admission: 09/13/21 11:20 Expected date of discharge: 09/17/21 Attending physician: Davonte Fletcher Primary care physician: Stated None - Discharge Diagnosis(es) (1) Family planning Current Visit: Yes Status: Acute (2) 35 to 36 weeks gestation of Current Visit: No Status: Acute (3) Gestational hypertension Current Visit: No Status: Acute (4) Previous delivery affecting Current Visit: No Status: Acute Hospital Course: Please see dictated H&P for intimate details of this patient's admission. Brief summary this is a pleasant 26-year-old 4 para 3 female admitted for delivery secondary to preeclampsia. Patient is admitted undergoes repeat low transverse section and bilateral partial salpingectomy. Please see dictated operative note. Postoperative patient did well and on postoperative day #4 felt to be stable for discharge home follow up with me in 1 week. Procedures: Repeat low transverse section and bilateral partial salpingectomy Patient Condition at Discharge: Good Plan - Discharge Summary New Discharge Prescriptions: New Ibuprofen [Motrin] 600 mg PO Q6H PRN #40 tab PRN Reason: Pain No Action Pnv No.95/Ferrous Fum/Folic AC [ Multivitamin Tablet] 1 tab PO DAILY Discharge Medication List Pnv No.95/Ferrous Fum/Folic AC [ Multivitamin Tablet] 1 tab PO DAILY 10/19/20 [History] Ibuprofen [Motrin] 600 mg PO Q6H PRN #40 tab 09/17/21 [Rx] Follow up Appointment(s)/Referral(s): Davonte Fletcher MD [STAFF PHYSICIAN] - 10/24/21 11:00 am (Please see me for an incision check on 09-24-2021 at 1:30) Patient Instructions/Handouts: (DC) Activity/Diet/Wound Care/Special Instructions: No strenuous activity or heavy lifting for 6 weeks. No intercourse or anything per vagina for 6 weeks. Please call if any fever, chills, excessive vaginal bleeding, and/or abdominal pain. Discharge Disposition: HOME SELF-CARE
[2021-09-17 07:36] VITALS: RESP 17
[2021-09-17] MEDS: SENNOSIDES-DOCUSATE SODIUM 1 EACH TAB PO SCH (07:50)
[2021-09-17 15:05] VITALS: BP 125/87; PULSE 111; TEMP 99.1
== END 2021-09-17 18:09 | disposition home or self-care (01) | DRG 783 ==
LOC: FBPOP 10:35 → 4FBP 11:20
PROVIDERS: ADMIT Obstetrics & Gynecology; ATTEND Obstetrics & Gynecology
PROC: 0UB70ZZ Excision of Bilateral Fallopian Tubes, Open Approach (ICD-10-PCS; 2021-09-13)
PROC: 10D00Z1 Extraction of Products of Conception, Low, Open Approach (ICD-10-PCS; principal; 2021-09-13 17:00)
DX: O34.211 Maternal care for low transverse scar from previous cesarean delivery (principal); O60.14X0 Preterm labor third trimester with preterm delivery third trimester, not applicable or unspecified; L29.9 Pruritus, unspecified; O99.73 Diseases of the skin and subcutaneous tissue complicating the puerperium; O14.14 Severe pre-eclampsia complicating childbirth; Z30.2 Encounter for sterilization; Z37.0 Single live birth; Z3A.36 36 weeks gestation of pregnancy; Z82.49 Family history of ischemic heart disease and other diseases of the circulatory system; Z30.09 Encounter for other general counseling and advice on contraception
CPT/HCPCS: 59025; 81001; 82565; 82570; 83615; 83735; 84156; 84450; 84460; 84520; 84550; 85025; 86850; 86900; 86901; 88302; 88307; 99215